=== PATIENT | male | born 1955 | race Caucasian/White ===

== ENCOUNTER 2018-12-08 12:40 | Inpatient (IN) | payer MEDICARE, OTHER ==
[2018-12-08] VITALS (12 sets, daily range): BP systolic 119–170; BP diastolic 57–86
[2018-12-08] MEDS ORDERED: GLUCOSE 4 GM CHEW TABLET PO PRN (17:30)
[2018-12-08] MEDS ORDERED: DEXTROSE 50% 50 ML SYRINGE IV PRN (17:30)
[2018-12-08] MEDS ORDERED: GLUCAGON FOR INJ 1 MG VIAL (J1610) SC PRN (17:30)
[2018-12-08] MEDS ORDERED: HumaLOG INSULIN (NovoLOG) PER UNIT SC SCH ×2 (17:30→21:00)
[2018-12-08] MEDS ORDERED: IPRATROPIUM 0.5MG/ALBUTEROL 2.5MG INH SOL UD 3ML (DUONEB)(J7620) NEB PRN (17:30)
[2018-12-08] MEDS ORDERED: POTA10TA17 PO (17:52)
[2018-12-08] MEDS ORDERED: SPIR-10 PO (17:52)
[2018-12-08] MEDS ORDERED: MULTCAP PO (17:52)
[2018-12-08] MEDS ORDERED: CALC500T68 PO (17:52)
[2018-12-08] MEDS ORDERED: ATOR80TA59 PO (17:52)
[2018-12-08] MEDS ORDERED: GLIP5TAB8 PO (17:52)
[2018-12-08] MEDS ORDERED: FURO40TA2 PO (17:52)
[2018-12-08] MEDS ORDERED: METF500T4 PO (17:52)
[2018-12-08] MEDS ORDERED: VENTAER INH (17:52)
[2018-12-08] MEDS ORDERED: XARE20TA PO (17:52)
[2018-12-08] MEDS ORDERED: NESI25TA PO (17:52)
[2018-12-08] MEDS ORDERED: METO50TA7 PO (17:52)
[2018-12-08] MEDS ORDERED: LISI40TA PO (17:52)
[2018-12-08] MEDS ORDERED: MAGN250T6 PO (17:52)
[2018-12-08] MEDS ORDERED: DILT180C43 PO (17:52)
[2018-12-08] MEDS ORDERED: SYMB16INH INH (17:52)
[2018-12-08] MEDS ORDERED: FISH1000 PO (17:52)
[2018-12-08] MEDS ORDERED: ZINC1TAB2 PO (17:52)
[2018-12-08] MEDS ORDERED: TIOT18INH INH (17:52)
[2018-12-08] MEDS ORDERED: PANT40TA3 PO (17:52)
[2018-12-08] MEDS ORDERED: DRIS50003 PO (17:53)
[2018-12-08] MEDS ORDERED: NITROGLYCERIN/D5W 100MCG/ML 25 MG in APPROPRIATE DILUENT 1 EA IV SCH (18:15)
[2018-12-08] MEDS: FUROSEMIDE 40 MG/4 ML VIAL (J1940) IV SCH (18:27)
[2018-12-08 18:39] LABS: ABG BASE EXCESS 3.3 (-2.0-2.0); ABG HCO3 28.2 MEQ/L (22.0-26.0); ABG O2 SATURATION 95.7 % (95.0-99.0); ABG PARTIAL PRESSURE CO2 43.7 mmHg (35.0-45.0); ABG PARTIAL PRESSURE O2 82.8 mmHg (75.0-100.0); ABG STANDARD HCO3 27.4 MEQ/L (22.0-26.0); ABG TOTAL CO2 29.5 MEQ/L (23.0-31.0); ABG pH (ARTERIAL) 7.427 UNITS (7.350-7.450)
[2018-12-08 18:51] LABS: HEMOGLOBIN 14.1 g/dl (13.5-17.5); MEAN CORPUSCULAR HEMOGLOBIN 29.9 pg (27.0-33.0); MEAN CORPUSCULAR HGB CONC 32.8 g/dl (32.0-36.5); MEAN CORPUSCULAR VOLUME 91.1 fl (80.0-96.0); PLATELET COUNT, AUTOMATED 220 10^3/uL (150-450); RED BLOOD COUNT 4.72 10^6/uL (4.30-6.10); WHITE BLOOD COUNT 11.8 10^3/uL (4.0-10.0)
--- NOTE | 2018-12-08 18:52 | ECGEPIP ---
Stationary ECG Study [facility] Test Date: 2018-12-08 Pat Name: MELVIN OLIVEROS Department: Room: [place] [address] Gender: M Research Geneticist: KAREEM : 1955 Requested By: CHRISTINA LOVING Order Number: [id number] Reading MD: Adwoa Gaspar Measurements Intervals Reserve Rate: 100 P: 50 MN: 166 QRS: 62 QRSD: 113 T: 38 QT: 391 QTc: 505 Interpretive Statements SINUS TACHYCARDIA MODERATE INTRAVENTRICULAR CONDUCTION DELAY NO PRIOR Electronically Signed On 12-08-2018 18:52:22 EDT by Adwoa Gaspar
[2018-12-08 19:02] LABS: INR 2.04; PROTHROMBIN TIME 23.4 SECONDS (12.1-14.4)
[2018-12-08 19:07] LABS: ALBUMIN 3.3 GM/DL (3.2-5.2); ALT/SGPT 36 U/L (12-78); BILIRUBIN,TOTAL 0.7 MG/DL (0.2-1.0); BLOOD UREA NITROGEN 14 MG/DL (7-18); CALCIUM LEVEL 8.5 MG/DL (8.8-10.2); CARBON DIOXIDE LEVEL 28 MEQ/L (21-32); CHLORIDE LEVEL 101 MEQ/L (98-107); CREATININE FOR GFR 0.82 MG/DL (0.70-1.30); GLOMERULAR FILTRATION RATE > 60.0 (>49); GLUCOSE, FASTING 269 MG/DL (70-100); MAGNESIUM LEVEL 1.7 MG/DL (1.8-2.4); POTASSIUM SERUM 3.6 MEQ/L (3.5-5.1); SODIUM LEVEL 136 MEQ/L (136-145); TOTAL PROTEIN 7.5 GM/DL (6.4-8.2)
--- NOTE | 2018-12-08 19:14 | HPEPDOC ---
General Date of Admission December 08, 2018 at 16:20 Chief Complaint The patient is a 63-year-old male admitted with a reason for visit of Pneumonia,Copd,Chf. Source: Patient, EMS notes reviewed, Other (other hospital records) Exam Limitations: No limitations Severity: Severe Associated Symptoms: Cough, Chills, Shortness of breath History of Present Illness 63 aliya old male with PMH of Diastolic CHF, copd with chronic respiratory failure with hypoxia, Morbid obesity , ROBBIN on CPAP, diabetes, hypertension, hyperlipidemia, Paroxysmal atrial fibrillation, hypomagnesemia, GERD, h/o colon cancer s/p partial colectomy in 2012 presented initially to the [facility] ED on 12/08/18 at the insistence of his friend for Shortness of breath worse for 1 day orthopniec over night normally he uses 2 pillow but could not lay down last night. Chika had associated cough with greenish sputum production over the past 4 days. He has been feeling generally unwell with malaise and subjective chills for the ast 5 days. He also had a n associated sore throat. He thought he had a cold. He was also started on spironolactone 1 week and though that was making him sick but ever after stopping the medication he did not feel any better. In the ED of the other hospital CXR showed RLL infiltrates and pulmonary vascular congestion. He was diagnosed with Pneumonia and CHF. He was given 80 mg of Lasix with 3000 ml Urine output which really improved his breathing. His blood pressure was uncontrolled so he was also started on nitro gtt. He was also give ceftriaxone and azithromycin. He was transferred here for further care. Home Medications Scheduled Alogliptin Benzoate (Nesina) 25 Mg Tablet, 25 MG PO DAILY, (Reported) Atorvastatin Calcium (Atorvastatin Calcium) 80 Mg Tablet, 80 MG PO DAILY, (Reported) Budesonide/Formoterol (Symbicort 160-4.5 Mcg Inhaler) 6 Gm Hfa.aer.ad, 2 PUFF INH BID, (Reported) Calcium Carbonate (Calcium) 500 Mg Tab.chew, 500 MG PO DAILY, (Reported) Digoxin (Digoxin) 250 Mcg Tablet, 250 MCG PO DAILY Diltiazem Hcl (Cardizem Cd) 120 Mg Cap.er.24h, 240 MG PO BID Ergocalciferol (Vitamin D2) (Drisdol) 50,000 Unit Capsule, 50,000 UNIT PO Q2WK, (Reported) SATURDAYS Glipizide (Glipizide) 5 Mg Tablet, 5 MG PO BID, (Reported) Magnesium Oxide (Magnesium Oxide) 250 Mg Tablet, 250 MG PO DAILY, (Reported) Metformin HCl (Metformin HCl ER) 500 Mg Tab.er.24h, 1,000 MG PO DAILY, (Reported) Methimazole (Methimazole) 5 Mg Tablet, 15 MG PO DAILY Multivitamin (Multivitamins) 1 Each Capsule, 1 CAP PO BID, (Reported) Nebivolol HCl (Bystolic) 5 Mg Tablet, 20 MG PO BID [place]-3 Fatty Acids/Fish Oil (Fish Oil 1,000 mg Capsule) 1 Each Capsule, 1,000 MG PO DAILY, (Reported) Pantoprazole Sodium (Pantoprazole Sodium) 40 Mg Tablet.dr, 40 MG PO DAILY, (Reported) Potassium Chloride (Potassium Chloride) 10 Meq Tab.er.prt, 20 MEQ PO DAILY, (Reported) Potassium Chloride (Klor-Con M10) 10 Meq Tab.er.prt, 40 MEQ PO DAILY Rivaroxaban (Xarelto) 20 Mg Tablet, 20 MG PO DAILY, (Reported) Spironolactone (Spironolactone) 25 Mg Tablet, 25 MG PO DAILY, (Reported) Tiotropium [place] Monohydrate (Spiriva) 18 Mcg Cap.w.dev, 1 CAP INH DAILY, (Reported) Torsemide (Torsemide) 20 Mg Tablet, 20 MG PO BID Zinc (Zinc) 50 Mg Tablet, 50 MG PO DAILY, (Reported) Scheduled PRN Albuterol Sulfate (Ventolin Hfa) 18 Gm Hfa.aer.ad, 2 PUFF INH Q4H PRN for SHORTNESS OF BREATH, (Reported) Allergies Coded Allergies: POLLEN (Unverified Allergy, Unknown, RUNNY NOSE, 12/08/18) levofloxacin (Unverified Allergy, Unknown, UNKNOWN, 12/08/18) Past Medical History Medical History Diastolic CHF, copd with chronic respiratory failure with hypoxia, Morbid obesity , ROBBIN on CPAP, diabetes, hypertension, hyperlipidemia, Paroxysmal atrial fibrillation, hypomagnesemia, GERD, h/o colon cancer s/p partial colectomy in Surgical History h/o colon cancer s/p partial colectomy in 2012 Family History Family history reviewed with pateint and is noncontributary Social History * Smoker: Denies Alcohol: occationally (3 times a week about 3 beers at a time) Drugs: denies A-FIB/CHADSVASC A-FIB History Current/History of A-Fib/PAF?: Yes Current Oral Anticoagulant The: Yes Review of Systems Constitutional: Reports: Chills, Weakness, Fatigue Eyes: Denies: Pain, Vision change ENT: Denies: Head Aches, Ear Pain, Dysphagia Skin: Denies: Rash, Lesions, Breakdown Pulmonary: Reports: Dyspnea, Cough Cardiovascular: Reports: Orthopnea, Edema Gastrointestinal: Denies: Nausea, Vomiting, Abdominal Pain, Diarrhea Genitourinary: Denies: Dysuria, Frequency, Incontinence, Retention Hematologic: Denies: Bruising, Bleeding Excessively Musculoskeletal: Denies: Neck Pain, Back Pain, Joint Pain, Muscle Pain, Spasms Neurological: Denies: Weakness, Numbness, Change in speech, Confusion Psych: Reports: Mood Normal; Denies: Depression, Memory Issues Physical Examination General Exam: Positive: Alert, Cooperative, Moderate Distress Eye Exam: Positive: PERRLA, Conjunctiva & lids normal, EOMI; Negative: Sclera icteric ENT Exam: Positive: Atraumatic, Mucous membr. moist/pink, Pharynx Normal Neck Exam: Positive: Supple, JVD Chest Exam: Positive: Rales, Wheezing, Diminished Heart Exam: Positive: Rate Normal, Normal S1, Normal S2; Negative: Regular Rhythm, Gallops, Murmurs, Rubs, Other Telemetry: Positive: No significant arrhythmia Abdomen Exam: Positive: Normal bowel sounds, Soft Extremity Exam: Positive: Edema; Negative: Clubbing, Cyanosis Skin Exam: Positive: Nl turgor and temperature; Negative: Breakdown, Lesion Neuro Exam: Positive: Normal Gait, Normal Speech, Cranial Nerves 3-12 NL, Reflexes 2+ Psych Exam: Positive: Mental status NL, Mood NL, Oriented x 3 Vital Signs Vital Signs Date Time Temp Pulse Resp B/P (MAP) Pulse Ox O2 Delivery O2 Flow Rate FiO2 12/08/18 16:47 99.4 106 22 170/86 (114) 96 12/08/18 16:45 2.0 Assessment/Plan 63 aliya old male with PMH of Diastolic CHF, copd with chronic respiratory failure with hypoxia, Morbid obesity , ROBBIN on CPAP, diabetes, hypertension, hyperlipidemia, Paroxysmal atrial fibrillation, hypomagnesemia, GERD, h/o colon cancer s/p partial colectomy in 2012 presented initially to the [facility] ED on 12/08/18 at the insistence of his friend for Shortness of breath worse for 1 day orthopniec over night normally he uses 2 pillow but could not lay down last night. Chika had associated cough with greenish sputum production over the past 4 days. He has been feeling generally unwell with malaise and subjective chills for the ast 5 days. He also had a n associated sore throat. He thought he had a cold. He was also started on spironolactone 1 week and though that was making him sick but ever after stopping the medication he did not feel any better. In the ED of the other hospital CXR showed RLL infiltrates and pulmonary vascular congestion. He was diagnosed with Pneumonia and CHF. He was given 80 mg of Lasix with 3000 ml Urine output which really improved his breathing. His blood pressure was uncontrolled so he was also started on nitro gtt. He was also give ceftriaxone and azithromycin. He was transferred here for further care. Diastolic CHF exacerbation will get an echo. start on lasix iv also on nitroglycerine gtt. already had 3 L of diuresis in the other hospital fluid restriction 1.8 liters. Patient admits to drinking a lot of fluids at home. Possible RLL pneumonia will give ceftriaxone and azithromycin COPD exacerbation due to fluid overload and pneumonia continue nebs and iv steroids. Lactacidosis In my interpretation the pateint's lactacidosis is due to increased work of breathing and albuterol treatments rather than infection Hypertension will start diltiazem, betablocker slowing wean of nitroglycerine gtt Diabetes glipizide and lispro Paroxysmal A fib now in sinus rhythm will continue betablocker and diltiazeem will give xarelto DVT prophylaxis ordered. Plan / VTE VTE Prophylaxis Ordered?: Yes CHRISTINA LOVING MD December 08, 2018 18:00
[2018-12-08] MEDS: ALBUTEROL SULFATE 2.5 MG/0.5 ML INH NEB SOLN NEB SCH (19:42)
[2018-12-08] MEDS: BUDESONIDE 0.5 MG/2 ML INHALATION SUSPENSION INH SCH (19:42)
[2018-12-08] MEDS ORDERED: LEVEMIR (INSULIN DETEMIR) 1 UNITS/0.01ML SC SCH (21:00)
[2018-12-08] MEDS: METOPROLOL TART 25 MG TABLET PO SCH (21:08)
[2018-12-08] MEDS: MAGNESIUM OXIDE 400 MG TAB (MAG-OX) PO SCH (21:08)
[2018-12-08] MEDS: methylPREDNISolone INJ 40 MG/1 ML VIAL (J2920) IV SCH (21:09)
[2018-12-08] MEDS: glipiZIDE (GLUCOTROL) 5 MG TAB PO SCH (21:22)
[2018-12-08] MEDS: HumaLOG INSULIN (NovoLOG) PER UNIT SC SCH (21:24)
[2018-12-09] VITALS (57 sets, daily range): BP systolic 99–197; BP diastolic 55–144
[2018-12-09] MEDS: ALBUTEROL SULFATE 2.5 MG/0.5 ML INH NEB SOLN NEB SCH ×4 (01:09→20:14)
--- NOTE | 2018-12-09 02:35 | REP ---
Clinical: Shortness of breath. Comparison: None . Findings: The mediastinum and cardiac silhouette are stable and within normal limits for portable technique. Subtle right basilar opacity cannot be excluded and should be correlated clinically. Impression: Subtle right basilar opacity should be correlated with physical examination and auscultation. No prior examination for comparison. Consider chest CT for further investigation if necessary. Electronically Signed by Jameson Stephenson MD 12/09/2018 02:26 A
[2018-12-09] MEDS: methylPREDNISolone INJ 40 MG/1 ML VIAL (J2920) IV SCH ×3 (04:28→19:55)
[2018-12-09] MEDS: FUROSEMIDE 40 MG/4 ML VIAL (J1940) IV SCH ×3 (04:28→19:55)
[2018-12-09 05:45] LABS: BASO % 0.2 % (0.0-1.0); HEMATOCRIT 42.2 % (42.0-52.0); HEMOGLOBIN 14.1 g/dl (13.5-17.5); LYMPH # 0.6 10^3/uL (1.5-4.5); LYMPH % 4.8 % (24.0-44.0); MEAN CORPUSCULAR HEMOGLOBIN 30.1 pg (27.0-33.0); MEAN CORPUSCULAR HGB CONC 33.4 g/dl (32.0-36.5); MEAN CORPUSCULAR VOLUME 90.2 fl (80.0-96.0); MONO # 0.8 10^3/uL (0.0-0.8); MONO % 6.2 % (0.0-5.0); NEUTROPHILS # 11.5 10^3/uL (1.8-7.7); PLATELET COUNT, AUTOMATED 244 10^3/uL (150-450); RED BLOOD COUNT 4.68 10^6/uL (4.30-6.10); WHITE BLOOD COUNT 13.1 10^3/uL (4.0-10.0)
[2018-12-09 06:12] LABS: BLOOD UREA NITROGEN 18 MG/DL (7-18); CALCIUM LEVEL 8.6 MG/DL (8.8-10.2); CARBON DIOXIDE LEVEL 32 MEQ/L (21-32); CHLORIDE LEVEL 101 MEQ/L (98-107); CREATININE FOR GFR 0.72 MG/DL (0.70-1.30); GLOMERULAR FILTRATION RATE > 60.0 (>49); GLUCOSE, FASTING 229 MG/DL (70-100); MAGNESIUM LEVEL 1.9 MG/DL (1.8-2.4); POTASSIUM SERUM 3.6 MEQ/L (3.5-5.1); SODIUM LEVEL 141 MEQ/L (136-145)
[2018-12-09] MEDS: BUDESONIDE 0.5 MG/2 ML INHALATION SUSPENSION INH SCH ×2 (07:24→20:14)
[2018-12-09] MEDS: TIOTROPIUM INHALER/CAPSULE (SPIRIVA) INH SCH (07:24)
[2018-12-09] MEDS: METOPROLOL TART 25 MG TABLET PO SCH (08:08)
[2018-12-09] MEDS: CALCIUM CARBONATE 500 MG CHEW U/D PO SCH (08:08)
[2018-12-09] MEDS: MAGNESIUM OXIDE 400 MG TAB (MAG-OX) PO SCH ×2 (08:09→20:37)
[2018-12-09] MEDS: HumaLOG INSULIN (NovoLOG) PER UNIT SC SCH ×4 (08:09→20:37)
[2018-12-09] MEDS: AZITHROMYCIN 250 MG TAB PO SCH (08:09)
[2018-12-09] MEDS: PANTOPRAZOLE 40MG TAB (PROTONIX) PO SCH (08:09)
[2018-12-09] MEDS: POTASSIUM CHLORIDE 10 MEQ SR TABLET PO SCH (08:09)
[2018-12-09] MEDS: glipiZIDE (GLUCOTROL) 5 MG TAB PO SCH (08:09)
[2018-12-09] MEDS: cefTRIAXone SOD 1 GM in D5W MINI-BAG PLUS 50 ML IV SCH (08:10)
[2018-12-09] MEDS: METOPROLOL 5 MG/5 ML VIAL IV SCH ×3 (08:47→09:00)
[2018-12-09] MEDS ORDERED: METOPROLOL 5 MG/5 ML VIAL As Ordered ONE (08:48)
[2018-12-09] MEDS ORDERED: LEVEMIR (INSULIN DETEMIR) 1 UNITS/0.01ML SC SCH (09:00)
[2018-12-09] MEDS: RIVAROXABAN 20 MG TAB (XARELTO) PO SCH (10:05)
[2018-12-09] MEDS: diltiaZEM 125 MG in NS 100 ML IV SCH ×2 (10:05→16:58)
--- NOTE | 2018-12-09 12:21 | IPNPDOC ---
Subjective Date Seen The patient was seen on 12/09/18. Subjective Chief Complaint/HPI pateint went into Afib with Rvr this am with pulse of 160 to 190 with increased SOB and increased coughing this happened about 1 hour after his nebs . given metoprolol 5 mg iv x 3 without improvement so started on diltiazem gtt. Got records from behavioral therapy coordinator office to look into last echo report and the EF. EF was 55 %. with diltiazem pulse rate did come done to 140s to 160s. Consulted cardiology. Denied any chest pain, felt palpitation. No fever or chills. His respiratory panel came back positive for parainfluenza virus. Objective Physical Examination General Exam: Positive: Alert, Cooperative, Moderate Distress Eye Exam: Positive: PERRLA, Conjunctiva & lids normal, EOMI; Negative: Sclera icteric ENT Exam: Positive: Atraumatic, Mucous membr. moist/pink, Pharynx Normal Neck Exam: Positive: Supple, JVD Chest Exam: Positive: Rales, Diminished Heart Exam: Positive: Rate Normal, Normal S1, Normal S2; Negative: Regular Rhythm, Gallops, Murmurs, Rubs, Other Telemetry: Positive: No significant arrhythmia Abdomen Exam: Positive: Normal bowel sounds, Soft Extremity Exam: Positive: Edema; Negative: Clubbing, Cyanosis Skin Exam: Positive: Nl turgor and temperature; Negative: Breakdown, Lesion Neuro Exam: Positive: Normal Gait, Normal Speech, Cranial Nerves 3-12 NL, Reflexes 2+ Psych Exam: Positive: Mental status NL, Mood NL, Oriented x 3 Assessment /Plan Assessment 63 aliya old male with PMH of Diastolic CHF, copd with chronic respiratory failure with hypoxia, Morbid obesity , ROBBIN on CPAP, diabetes, hypertension, hyperlipidemia, Paroxysmal atrial fibrillation, hypomagnesemia, GERD, h/o colon cancer s/p partial colectomy in 2013 presented initially to the [facility] ED on 12/08/18 at the insistence of his friend for Shortness of breath worse for 1 day orthopniec over night normally he uses 2 pillow but could not lay down last night. Halso had associated cough with greenish sputum production over the past 4 days. He has been feeling generally unwell with malaise and subjective chills for the ast 5 days. He also had a n associated sore throat. He thought he had a cold. He was also started on spironolactone 1 week and though that was making him sick but ever after stopping the medication he did not feel any better. In the ED of the other hospital CXR showed RLL infiltrates and pulmonary vascular congestion. He was diagnosed with Pneumonia and CHF. He was given 80 mg of Lasix with 3000 ml Urine output which really improved his breathing. His blood pressure was uncontrolled so he was also started on nitro gtt. He was also give ceftriaxone and azithromycin. He was transferred here for further care. Parainfluenza viral respiratory infection with post infectious pneumonia bacterial vs viral continue symptomatic treatment. Diastolic CHF exacerbation Echo from behavioral therapy coordinator office from september 2018 shows ED of 55% paeint was in Afib then also with rate of 122. will get an echo. start on lasix iv also on nitroglycerine gtt. already had 3 L of diuresis in the other hospital fluid restriction 1.8 liters. Patient admits to drinking a lot of fluids at home. Possible RLL pneumonia viral vs bacterial pneumonia will get procalcitonin. ceftriaxone and azithromycin COPD exacerbation Parainfluenza infection due to fluid overload and pneumonia continue nebs and iv steroids. Lactacidosis no improvement yet will continue tt for the above. Hypertension with hypertensive heart disease diltiazem, betablocker nitroglycerine gtt weaned off Diabetes glipizide and lispro Paroxysmal A fib Today went into Afib with rvr in the morning. given metoprolol x3 then started on diltiazen infusion consulted cardiology will continue betablocker continue xarelto DVT prophylaxis ordered. Plan/VTE VTE Prophylaxis Ordered?: Yes VS, I&O, 24H, Fishbone Vital Signs/I&O Vital Signs Date Time Temp Pulse Resp B/P (MAP) Pulse Ox O2 Delivery O2 Flow Rate FiO2 12/09/18 10:05 169 12/09/18 09:00 127/90 12/09/18 06:45 93 12/09/18 06:34 2.0 12/09/18 04:00 98.0 26 I&O- Last 24 Hours up to 6 AM 12/09/18 06:00 Intake Total 608.8 ml Output Total 2325 ml Balance -1716.2 ml Laboratory Data 24H LABS Laboratory Tests 2 12/08/18 18:21: Bedside Glucose (Misc Panel) 281H 12/08/18 18:29: Nucleated Red Blood Cells % (auto) 0.0, Prothrombin Time 23.4H, Prothromb Time International Ratio 2.04, Blood Gas Bicarbonate Standard 27.4H, Arterial Blood pH 7.427, Arterial Blood Partial Pressure CO2 43.7, Arterial Blood Partial Pressure O2 82.8, Arterial Blood Total CO2 29.5, Arterial Blood HCO3 28.2H, Arterial Blood Base Excess 3.3H, Arterial Blood Oxygen Saturation 95.7, Anion Gap 7L, Glomerular Filtration Rate > 60.0, Lactic Acid Level 2.3*H, Blood Urea Nitrogen 14, Creatinine 0.82, Sodium Level 136, Potassium Level 3.6, Chloride Level 101, Carbon Dioxide Level 28, Calcium Level 8.5L, Aspartate Amino Transf (AST/SGOT) 30, Alanine Aminotransferase (ALT/SGPT) 36, Alkaline Phosphatase 136H, Total Bilirubin 0.7, Total Protein 7.5, Albumin 3.3, Magnesium Level 1.7L, Albumin/Globulin Ratio 0.79L 12/08/18 21:03: Bedside Glucose (Misc Panel) 357H 12/08/18 23:09: Lactic Acid Followup at 4 Hours 3.0*H 12/09/18 05:33: Immature Granulocyte % (Auto) 0.8, White Blood Count 13.1H, Red Blood Count 4.68, Hemoglobin 14.1, Hematocrit 42.2, Mean Corpuscular Volume 90.2, Mean Corpuscular Hemoglobin 30.1, Mean Corpuscular Hemoglobin Concent 33.4, Red Cell Distribution Width 14.6H, Platelet Count 244, Neutrophils (%) (Auto) 88.0H, Lymphocytes (%) (Auto) 4.8L, Monocytes (%) (Auto) 6.2H, Eosinophils (%) (Auto) 0.0, Basophils (%) (Auto) 0.2, Neutrophils # (Auto) 11.5H, Lymphocytes # (Auto) 0.6L, Monocytes # (Auto) 0.8, Eosinophils # (Auto) 0.0, Basophils # (Auto) 0.0, Nucleated Red Blood Cells % (auto) 0.0, Anion Gap 8, Glomerular Filtration Rate > 60.0, Blood Urea Nitrogen 18, Creatinine 0.72, Sodium Level 141, Potassium Level 3.6, Chloride Level 101, Carbon Dioxide Level 32, Calcium Level 8.6L, Magnesium Level 1.9 12/09/18 11:55: Bedside Glucose (Misc Panel) 270H CBC/BMP Laboratory Tests 12/08/18 18:29 Red Blood Count 4.72, Mean Corpuscular Volume 91.1, Mean Corpuscular Hemoglobin 29.9, Mean Corpuscular Hemoglobin Concent 32.8, Red Cell Distribution Width 14.5, Calcium Level 8.5 L, Aspartate Amino Transf (AST/SGOT) 30, Alanine Aminotransferase (ALT/SGPT) 36, Alkaline Phosphatase 136 H, Total Bilirubin 0.7, Total Protein 7.5, Albumin 3.3 12/09/18 05:33 Red Blood Count 4.68, Mean Corpuscular Volume 90.2, Mean Corpuscular Hemoglobin 30.1, Mean Corpuscular Hemoglobin Concent 33.4, Red Cell Distribution Width 14.6 H, Calcium Level 8.6 L, Neutrophils (%) (Auto) 88.0 H, Lymphocytes (%) (Auto) 4.8 L, Monocytes (%) (Auto) 6.2 H, Eosinophils (%) (Auto) 0.0, Basophils (%) (Auto) 0.2, Neutrophils # (Auto) 11.5 H, Lymphocytes # (Auto) 0.6 L, Monocytes # (Auto) 0.8, Eosinophils # (Auto) 0.0, Basophils # (Auto) 0.0 Microbiology Microbiology 12/08/18 Respiratory Virus Panel (PCR) ([facility]) - Final, Complete Parainfluenza 3 (Piv3) CHRISTINA LOVING MD December 09, 2018 12:21
[2018-12-09] MEDS: AMIODARONE 200 MG TAB (PACERONE) PO SCH ×3 (14:12→20:38)
[2018-12-09] MEDS ORDERED: NEBIVOLOL 5 MG TAB (BYSTOLIC) PO SCH ×2 (15:00→21:00)
[2018-12-09] MEDS ORDERED: PILL CRUSHER/CUTTER 1 EACH XX PRN (16:45)
[2018-12-09] MEDS ORDERED: DIGOXIN INJ 0.5 MG/2 ML AMP (J1160) IV ONE ×3 (17:00→23:00)
[2018-12-09] MEDS ORDERED: RIVAROXABAN 20 MG TAB (XARELTO) PO SCH (18:00)
[2018-12-09] MEDS: SITagliptin 50 MG TAB (JANUVIA) PO SCH (18:27)
--- NOTE | 2018-12-09 19:09 | CR ---
DATE OF CONSULTATION: 12/09/2018 REFERRING PHYSICIAN: Dr. Vianey Landry REASON FOR CONSULTATION: Paroxysmal atrial fibrillation with rapid ventricular response, acute on chronic diastolic heart failure. HISTORY OF THE PRESENT ILLNESS: Mr. Cisco Guo is a 63-year-old morbidly obese man with known paroxysmal atrial fibrillation, chronic diastolic heart failure, systemic hypertension, chronic obstructive pulmonary disease (COPD) with chronic respiratory failure with hypoxia, obstructive sleep apnea - on continuous positive airway pressure (CPAP), type 2 diabetes, hyperlipidemia, hypomagnesemia, gastroesophageal reflux disease (GERD), history of colon cancer, status post partial colectomy 2012, who recently presented to [facility] Emergency Room (ER) 12/08/2018 because of a one-day history of worsening shortness of breath with orthopnea and dyspnea at rest. He usually has dyspnea with less than ordinary activities of daily living. He had also been producing green sputum in the previous 4 days prior to his presentation. He was feeling generally unwell and subjectively felt chills in the 5 days prior to his presentation. He was discovered to have a right lower lobe infiltrate and pulmonary vascular congestion. He was diagnosed with pneumonia and congestive heart failure. He initially responded well with intravenous (IV) Lasix. His blood pressure was uncontrolled and so he was placed on nitroglycerin IV. He was given antibiotics (ceftriaxone and azithromycin). He was transferred to [facility] for further management. While here in the hospital at [facility], he has been having atrial fibrillation with rapid ventricular response despite metoprolol tartrate by mouth and IV diltiazem. Patient denies any chest pain, pressure, tightness, squeezing, or heaviness with or without exertion. No paroxysmal nocturnal dyspnea (PND). He reports chronic bilateral leg and ankle edema which he could not appreciate as being any different prior to admission, although it is hard for him to see his legs well because of his obesity. He is completely unaware of any palpitations even when he is in atrial fibrillation. No presyncope or syncope. No embolic events. No intermittent claudication. OTHER PAST MEDICAL AND SURGICAL HISTORY: Paroxysmal atrial fibrillation, chronic diastolic heart failure, COPD with chronic respiratory failure with hypoxemia, morbid obesity, obstructive sleep apnea - on continuous positive airway pressure (CPAP), type 2 diabetes, systemic hypertension, hyperlipidemia, hypomagnesemia, gastroesophageal reflux disease (GERD), history of colon cancer - status post partial colectomy 2012. ADVERSE DRUG REACTION: LEVOFLOXACIN (unknown reaction). MEDICATIONS PRIOR TO ADMISSION: - albuterol two puffs every 4 hours as needed - Nesina 25 mg by mouth daily - atorvastatin 80 mg daily - Symbicort two puffs twice a day - calcium carbonate 500 mg daily - diltiazem ER 180 mg daily - vitamin D2 50,000 units by mouth every 2 weeks on Saturdays - furosemide 40 mg by mouth twice a day - glipizide 5 mg twice a day - lisinopril 40 mg by mouth daily - magnesium oxide 250 mg daily - metformin ER 1000 mg by mouth daily - metoprolol tartrate 75 mg twice a day - multivitamin one twice a day - [place]-3 fish oil 1000 mg daily - pantoprazole 40 mg by mouth daily - potassium chloride 20 mEq daily - Xarelto 20 mg daily - Spiriva one inhalation daily - zinc 50 mg daily PATIENT'S CURRENT MEDICATIONS IN HOSPITAL ARE FOLLOWS: - albuterol nebulizers 2.5 mg every 6 hours - DuoNebs every 2 hours as needed for shortness of breath or wheezing - atorvastatin 80 mg nightly - Zithromax 500 mg by mouth daily - Pulmicort 0.5 mg nebulizer twice a day - TUMS 500 mg daily - ceftriaxone 1 gram IV daily - diltiazem IV 15 mg per hour - furosemide 40 mg IV every 8 hours - glipizide 5 mg twice a day - Glucagon per protocol - glucose per protocol - dextrose 50% IV per protocol - Levemir insulin 20 units subcu twice a day - Humalog insulin before meals and nightly subcu per protocol - magnesium oxide 400 mg twice a day - Solu-Medrol 40 mg IV every 8 hours - nitroglycerin IV - Protonix 40 mg by mouth daily - potassium chloride extended release 20 mEq daily - Xarelto 20 mg by mouth daily - Spiriva one inhalation daily FAMILY HISTORY: Noncontributory. SOCIAL HISTORY: Nonsmoker. He consumes an average of three beers three times a week. No illicit drugs. REVIEW OF SYSTEMS: Chills, weakness and fatigue prior to admission. Normal mood and affect. No anxiety or depression. PHYSICAL EXAMINATION: Temperature 97.2, pulse 149, respiratory rate 26, blood pressure 136/94, oxygen saturation 100% on two liters per minute by nasal cannula. Weight 128.8 kg. Height not listed. Patient appears morbidly obese. . Not in any respiratory or psychologic distress. Teeth are in poor condition with only a few remaining teeth. No conjunctival pallor, scleral icterus or xanthomas. Oral mucosa was moist and without pallor or cyanosis. Jugular venous pulsations were at 15 cm with the patient sitting upright at 90 degrees. Trachea midline. No palpable thyroid. No clubbing, nail bed cyanosis, or splinter hemorrhages. Stasis dermatitis in his legs. No skin pallor or icterus. Oriented to person, place and time. Mood and affect normal. Curvature of the spine normal. Gait walking around his bed was normal. Gross motor strength and tone normal. No abnormal muscle atrophy, fasciculations, or tremors. Respiratory expansion effort was fair. No crackles or wheezes. No palpable apex beat. No left parasternal lifts, heaves, thrills, or palpable heart sounds. First and second heart sounds are variable in intensity. No S3 or murmurs appreciated. No pericardial friction rubs. Carotids are normal in volume and contour and without bruits. No palpable abdominal aorta but difficult to palpate due to abdominal obesity. No abdominal bruits. Femoral pulses difficult to palpate due to severe obesity. Pedal pulses normal. 2 mm of pitting edema was present at mid and distal tibial level bilaterally. No varicose veins. Abdomen was obese, soft, nontender with normal bowel sounds. No hepatosplenomegaly or other organomegaly. Liver span difficult to assess due to abdominal obesity. Stool for occult blood not presently indicated. INVESTIGATIONS: Electrocardiogram 12/08/2018 at 0815 hours shows sinus tachycardia, 100 beats per minute, moderate nonspecific intraventricular conduction delay. I have independently visualized the patient's portable chest x-ray acquired 12/08/2018 at 5:16 p.m. It shows appearance of cardiomegaly despite the portable technique and suboptimal inspiration. Right lower lobe is filled in by raised right hemidiaphragm. Pulmonary vascular redistribution is present. Enlarged pulmonary arteries. No interstitial or alveolar edema. Pleural angles remain sharp. LABORATORY: Laboratory work 12/09/2018 was reviewed: WBC 13.1, hemoglobin 14.1, hematocrit 42.2, platelets 244. Sodium 141, potassium 3.6, chloride 101, CO2 32, BUN 18, creatinine 0.72, estimated GFR greater than 60, glucose 229, magnesium 1.9. Laboratory work 12/08/2018 was reviewed: Magnesium 1.7, total protein 7.5, albumin 3.3, lactic acid 2.3 and 3.0. ASSESSMENT AND PLAN: 1. Paroxysmal atrial fibrillation. Patient went into paroxysmal atrial fibrillation with a rapid ventricular response this morning, which has not responded well to IV diltiazem and metoprolol tartrate. I will switch him from metoprolol tartrate to a more beta-selective beta mini; namely I will switch him to Bystolic. Continue IV diltiazem for now at the current dosage. I will place him on amiodarone 400 mg by mouth four times a day and use this temporarily until he converts back to sinus rhythm. My plan is not to use amiodarone correction because he has got COPD with chronic respiratory failure. Continue Xarelto. If additional heart rate is controlled as needed, I may consider using digoxin at least temporarily with some IV dosing. 2. Acute on chronic diastolic heart failure. Patient is currently decompensated. Agree with IV furosemide. IV nitroglycerin is a good idea for now. I would like to add spironolactone and perhaps an angiotensin receptor mini. 3. Systemic hypertension, uncontrolled systemic hypertension. Continue IV furosemide and IV nitroglycerin for now. As noted above, I will switch him from metoprolol tartrate to Bystolic. I will consider adding spironolactone, and I will consider adding an angiotensin receptor mini. 4. Hyperlipidemia. Recommend a whole food, plant-based diet. Agree with continuing atorvastatin 80 mg nightly. Thank you for asking me to participate in the cardiac care of Mr. Cisco Guo. [facility]
[2018-12-09] MEDS: LEVEMIR (INSULIN DETEMIR) 1 UNITS/0.01ML SC SCH (20:36)
[2018-12-09] MEDS: ATORVASTATIN 20 MG TAB PO SCH (20:38)
--- NOTE | 2018-12-09 20:44 | ECGEPIP ---
Stationary ECG Study [facility] Test Date: 2018-12-09 Pat Name: MELVIN OLIVEROS Department: Room: [place] [address] Gender: M Client Experience Administrator: KAREEM : 1955 Requested By: CHRISTINA LOVING Order Number: [id number] Reading MD: Adwoa Gaspar Measurements Intervals Simpson Rate: 164 P: MA: 0 QRS: 68 QRSD: 109 T: -34 QT: 276 QTc: 456 Interpretive Statements ATRIAL FIBRILLATION WITH RAPID VENTRICULAR RESPONSE NONSPECIFIC ST & T-WAVE ABNORMALITY NON-SPECIFIC IVCD ATRIAL FIBRILLATION IS NEW SINCE 12/08/18 Electronically Signed On 12-09-2018 20:44:06 EDT by Adwoa Gaspar
--- NOTE | 2018-12-09 20:48 | ECHO ---
DATE OF PROCEDURE: 12/09/2018 REFERRING PHYSICIAN: Dr. Landry INDICATION: Congestive heart failure. Height 177 cm, weight 103 kg. DIMENSIONS: IVS: 1.7 LV: 4.1 LVPW: 1.5 LA: 5.1 Aorta: 3.0 IVC: 2.7 Mitral E wave velocity: E prime septal: 8.1 E prime lateral: 11.9 FINDINGS: Study is of very poor technical quality with very limited visualization corresponding to patient's body habitus and underlying chronic obstructive pulmonary disease (COPD). The patient is in atrial fibrillation with rapid ventricular rate, typically around 150 beats per minute Left ventricle is normal size. There is moderate left ventricular hypertrophy. It is impossible to accurately assess left ventricular systolic function due to tachycardia, poor visualization and left ventricle hypertrophy, but based on gross assessment, I estimate mild left ventricular (LV) systolic dysfunction. Right ventricle was poorly visualized. Both atria are severely enlarged. Aortic valve appears sclerotic, but it was poorly seen and I cannot comment on details of its anatomy. There are also degenerative abnormalities of mitral valve with mitral annular calcifications. Tricuspid valve appears normal. Pulmonic valve was not well seen. No pericardial effusion is noted. Inferior vena cava appears dilated. Abdominal aorta appears grossly normal based on limited views. Aortic arch was not visualized. Doppler interrogation reveals no significant aortic stenosis or insufficiency. There is also no mitral valvular disease. Trace tricuspid insufficiency is seen. Calculated pulmonary artery pressure is in 40s, but this should not be considered truly reliable. Evaluation of diastolic function is inconclusive due to atrial fibrillation, but tissue Doppler velocities of mitral annulus are relatively preserved. CONCLUSIONS: 1. Study is of very limited technical quality. 2. Normal LV size with moderate LVH and at least mildly reduced LV systolic function. This is in setting of atrial fibrillation with rapid ventricular response. 3. No hemodynamically significant valvular disease. 4. Likely high central venous pressure and at least moderate pulmonary hypertension. 5. Severe biatrial enlargement. COMMENT: Subacute bacterial endocarditis (SBE) prophylaxis is not recommended.
[2018-12-09] MEDS: NEBIVOLOL 5 MG TAB (BYSTOLIC) PO SCH (21:21)
[2018-12-10] VITALS (26 sets, daily range): BP systolic 125–182; BP diastolic 58–122
[2018-12-10] MEDS: ALBUTEROL SULFATE 2.5 MG/0.5 ML INH NEB SOLN NEB SCH ×4 (00:54→19:43)
[2018-12-10] MEDS: diltiaZEM 125 MG in NS 100 ML IV SCH ×2 (01:05→09:27)
[2018-12-10] MEDS: methylPREDNISolone INJ 40 MG/1 ML VIAL (J2920) IV SCH ×2 (04:07→15:01)
[2018-12-10] MEDS: FUROSEMIDE 40 MG/4 ML VIAL (J1940) IV SCH ×3 (04:08→20:17)
[2018-12-10 05:04] LABS: BASO % 0.2 % (0.0-1.0); HEMATOCRIT 46.6 % (42.0-52.0); HEMOGLOBIN 15.1 g/dl (13.5-17.5); LYMPH # 0.8 10^3/uL (1.5-4.5); LYMPH % 4.1 % (24.0-44.0); MEAN CORPUSCULAR HEMOGLOBIN 29.8 pg (27.0-33.0); MEAN CORPUSCULAR HGB CONC 32.4 g/dl (32.0-36.5); MEAN CORPUSCULAR VOLUME 92.1 fl (80.0-96.0); MONO # 1.2 10^3/uL (0.0-0.8); NEUTROPHILS # 17.7 10^3/uL (1.8-7.7); NEUTROPHILS % 88.8 % (36.0-66.0); PLATELET COUNT, AUTOMATED 291 10^3/uL (150-450); RED BLOOD COUNT 5.06 10^6/uL (4.30-6.10); WHITE BLOOD COUNT 19.9 10^3/uL (4.0-10.0)
[2018-12-10 05:26] LABS: BLOOD UREA NITROGEN 26 MG/DL (7-18); CALCIUM LEVEL 8.5 MG/DL (8.8-10.2); CARBON DIOXIDE LEVEL 33 MEQ/L (21-32); CHLORIDE LEVEL 102 MEQ/L (98-107); CREATININE FOR GFR 0.91 MG/DL (0.70-1.30); GLOMERULAR FILTRATION RATE > 60.0 (>49); GLUCOSE, FASTING 245 MG/DL (70-100); POTASSIUM SERUM 3.4 MEQ/L (3.5-5.1); SODIUM LEVEL 142 MEQ/L (136-145)
[2018-12-10] MEDS ORDERED: POTASSIUM CHLORIDE 10 MEQ SR TABLET PO ONE (06:45)
[2018-12-10 07:05] LABS: MAGNESIUM LEVEL 2.3 MG/DL (1.8-2.4)
[2018-12-10] MEDS: TIOTROPIUM INHALER/CAPSULE (SPIRIVA) INH SCH (07:15)
[2018-12-10] MEDS: BUDESONIDE 0.5 MG/2 ML INHALATION SUSPENSION INH SCH ×2 (07:15→19:43)
[2018-12-10] MEDS: HumaLOG INSULIN (NovoLOG) PER UNIT SC SCH ×4 (07:30→20:41)
[2018-12-10] MEDS: RIVAROXABAN 20 MG TAB (XARELTO) PO SCH (07:50)
[2018-12-10] MEDS: cefTRIAXone SOD 1 GM in D5W MINI-BAG PLUS 50 ML IV SCH (08:19)
[2018-12-10] MEDS: NEBIVOLOL 5 MG TAB (BYSTOLIC) PO SCH (08:20)
[2018-12-10] MEDS: SITagliptin 50 MG TAB (JANUVIA) PO SCH (08:20)
[2018-12-10] MEDS: LEVEMIR (INSULIN DETEMIR) 1 UNITS/0.01ML SC SCH ×2 (08:20→20:16)
[2018-12-10] MEDS: PANTOPRAZOLE 40MG TAB (PROTONIX) PO SCH (08:21)
[2018-12-10] MEDS: CALCIUM CARBONATE 500 MG CHEW U/D PO SCH (08:21)
[2018-12-10] MEDS: MAGNESIUM OXIDE 400 MG TAB (MAG-OX) PO SCH ×2 (08:21→20:18)
[2018-12-10] MEDS: AZITHROMYCIN 250 MG TAB PO SCH (08:21)
[2018-12-10] MEDS: AMIODARONE 200 MG TAB (PACERONE) PO SCH ×4 (08:21→20:18)
[2018-12-10] MEDS: POTASSIUM CHLORIDE 10 MEQ SR TABLET PO SCH (09:00)
--- NOTE | 2018-12-10 10:01 | IPNPDOC ---
Subjective Date Seen The patient was seen on 12/10/18. Subjective Chief Complaint/HPI Feeling better a little less SOB. Close to his usual breathing. Having good urine output and leg swelling is improving. No fever or chills, no chest pain . Does have some cough and intermittent wheezing. Objective Physical Examination General Exam: Positive: Alert, Cooperative, Mild Distress Eye Exam: Positive: PERRLA, Conjunctiva & lids normal, EOMI; Negative: Sclera icteric ENT Exam: Positive: Atraumatic, Mucous membr. moist/pink, Pharynx Normal Neck Exam: Positive: Supple, JVD Chest Exam: Positive: Rales, Wheezing, Diminished Heart Exam: Positive: Tachycardic, Irregular Rhythm, Normal S1, Normal S2; Negative: Regular Rhythm, Gallops, Murmurs, Rubs, Other Telemetry: Positive: Atrial fibrillation Abdomen Exam: Positive: Normal bowel sounds, Soft Extremity Exam: Positive: Edema; Negative: Clubbing, Cyanosis Skin Exam: Positive: Nl turgor and temperature; Negative: Breakdown, Lesion Neuro Exam: Positive: Normal Gait, Normal Speech, Cranial Nerves 3-12 NL, Re flexes 2+ Psych Exam: Positive: Mental status NL, Mood NL, Oriented x 3 Assessment /Plan Assessment 63 aliya old male with PMH of Diastolic CHF, copd with chronic respiratory failure with hypoxia, Morbid obesity , ROBBIN on CPAP, diabetes, hypertension, hyperlipidemia, Paroxysmal atrial fibrillation, hypomagnesemia, GERD, h/o colon cancer s/p partial colectomy in 2012 presented initially to the [facility] ED on 12/08/18 at the insistence of his friend for Shortness of breath worse for 1 day orthopniec over night normally he uses 2 pillow but could not lay down last night. Chika had associated cough with greenish sputum production over the past 4 days. He has been feeling generally unwell with malaise and subjective chills for the ast 5 days. He also had a n associated sore throat. He thought he had a cold. He was also started on spironolactone 1 week and though that was making him sick but ever after stopping the medication he did not feel any better. In the ED of the other hospital CXR showed RLL infiltrates and pulmonary vascular congestion. He was diagnosed with Pneumonia and CHF. He was given 80 mg of Lasix with 3000 ml Urine output which really improved his breathing. His blood pressure was uncontrolled so he was also started on nitro gtt. He was also give ceftriaxone and azithromycin. He was transferred here for further care. Parainfluenza viral respiratory infection with post infectious viral pneumonia procalcitonin is not elevated so he does not have a bacterial pneumonia continue symptomatic treatment will stop antibiotics. Paroxysmal A fib Now in Afib with rvr consulted cardiology will continue nebivolol, amiodarone, diltiazem gtt and digoxin as per cardiology recommendations rate still 115 to 135. continue xarelto Diastolic CHF exacerbation Echo from [facility] office from september 2018 shows ED of 55% patient was in Afib then also with rate of 122. will get an echo. continue IV lasix. fluid restriction 1.8 liters. Patient admits to drinking a lot of fluids at home. Possible RLL pneumonia this is viral pneumonia procalcitonin no elevated will stop ceftriaxone and azithromycin COPD exacerbation Parainfluenza infection, fluid overload and pneumonia continue nebs and iv steroids. will start weaning steroids. Chronic hypoxic respiratory failure patient is at baseline oxygen requirements will continue Morbid Obesity and ROBBIN continue CPAP Lactacidosis due to COPD exacerbation and CHF exacerbation with increased work of breathing. continue treatment for the above Hypertension with hypertensive heart disease diltiazem, betablocker ,lasix. nitroglycerine gtt weaned off Diabetes sugars uncontrolled worsened now due to steroids. on levemir and lispro and januvia. glipizide stopped. Hyperlipidemia continue statin. GERD continue PPI DVT prophylaxis on xarelto Plan/VTE VTE Prophylaxis Ordered?: Yes VS, I&O, 24H, Fishbone Vital Signs/I&O Vital Signs Date Time Temp Pulse Resp B/P (MAP) Pulse Ox O2 Delivery O2 Flow Rate FiO2 12/10/18 09:27 122 135/99 12/10/18 09:00 22 95 2.0 12/10/18 08:00 97.9 I&O- Last 24 Hours up to 6 AM 12/10/18 06:00 Intake Total 1402 ml Output Total 3025 ml Balance -1623 ml Laboratory Data 24H LABS Laboratory Tests 2 12/09/18 11:55: Bedside Glucose (Misc Panel) 270H 12/09/18 17:03: Bedside Glucose (Misc Panel) 259H 12/09/18 20:32: Bedside Glucose (Misc Panel) 183H 12/10/18 04:44: Immature Granulocyte % (Auto) 0.9, White Blood Count 19.9H, Red Blood Count 5.06, Hemoglobin 15.1, Hematocrit 46.6, Mean Corpuscular Volume 92.1, Mean Corpuscular Hemoglobin 29.8, Mean Corpuscular Hemoglobin Concent 32.4, Red Cell Distribution Width 14.8H, Platelet Count 291, Neutrophils (%) (Auto) 88.8H, Lymphocytes (%) (Auto) 4.1L, Monocytes (%) (Auto) 6.0H, Eosinophils (%) (Auto) 0.0, Basophils (%) (Auto) 0.2, Neutrophils # (Auto) 17.7H, Lymphocytes # (Auto) 0.8L, Monocytes # (Auto) 1.2H, Eosinophils # (Auto) 0.0, Basophils # (Auto) 0.0, Nucleated Red Blood Cells % (auto) 0.0, Anion Gap 7L, Glomerular Filtration Rate > 60.0, Blood Urea Nitrogen 26H, Creatinine 0.91, Sodium Level 142, Potassium Level 3.4L, Chloride Level 102, Carbon Dioxide Level 33H, Calcium Level 8.5L, Magnesium Level 2.3 CBC/BMP Laboratory Tests 12/10/18 04:44 Red Blood Count 5.06, Mean Corpuscular Volume 92.1, Mean Corpuscular Hemoglobin 29.8, Mean Corpuscular Hemoglobin Concent 32.4, Red Cell Distribution Width 14.8 H, Neutrophils (%) (Auto) 88.8 H, Lymphocytes (%) (Auto) 4.1 L, Monocytes (%) (Auto) 6.0 H, Eosinophils (%) (Auto) 0.0, Basophils (%) (Auto) 0.2, Neutrophils # (Auto) 17.7 H, Lymphocytes # (Auto) 0.8 L, Monocytes # (Auto) 1.2 H, Eosinophils # (Auto) 0.0, Basophils # (Auto) 0.0, Calcium Level 8.5 L Microbiology Microbiology 12/08/18 Respiratory Virus Panel (PCR) (DA[facility]IDE) - Final, Complete Parainfluenza 3 (Piv3) CHRISTINA LOVING MD December 10, 2018 10:01
[2018-12-10] MEDS ORDERED: NEBIVOLOL 5 MG TAB (BYSTOLIC) PO ONE (14:30)
[2018-12-10] MEDS: SPIRONOLACTONE 25 MG TAB PO SCH (17:56)
[2018-12-10] MEDS: ATORVASTATIN 20 MG TAB PO SCH (20:18)
[2018-12-10] MEDS ORDERED: NEBIVOLOL 5 MG TAB (BYSTOLIC) PO SCH (21:00)
--- NOTE | 2018-12-10 21:38 | IPN ---
DATE: 12/10/2018 TIME OF SERVICE: 4:05 p.m. SUBJECTIVE: Patient reports shortness of breath has improved. He is currently experiencing mild shortness of breath with low levels of activity, ambulating in the room. No orthopnea or paroxysmal nocturnal dyspnea (PND). No chest pain or chest discomfort. He is not aware of any palpitations. Overall, he is reporting that he feels better. PHYSICAL EXAMINATION: Temperature 97.9, pulse 129 (irregularly irregular), respiratory rate 22, blood pressure 132/82, oxygen saturation 95% on room air. Weight today 1237.9 kg. INPUT AND OUTPUT: For the 24 hours of 12/09/2018 show that patient is net negative 945 mL. Jugular venous pulsations were at the angle of the jaw with the patient sitting up at 90 degrees. Breath sound intensity was fair. No crackles or wheezes. First and second heart sounds variable intensity. No S3 or murmurs appreciated. Abdomen was obese, soft, nontender with normal bowel sounds. Mood and affect normal. Speech was normal. 1mm pitting edema was present at mid-tibia level bilaterally. LABORATORY WORK: was reviewed: Sodium 142, potassium 4.3, chloride 102, CO2 33, BUN 26, creatinine 0.96, GFR greater than 60, glucose 245, lactate 3.4 and 3.0, magnesium 2.3. ASSESSMENT AND PLAN: 1. Paroxysmal atrial fibrillation. Patient remains in atrial fibrillation with rapid response. Overall, the heart rate has started to come under better control. He reports on a prior occasion, it took eight days before he spontaneously converted to sinus rhythm. I have switched the patient from diltiazem intravenous (IV) to diltiazem 90 mg by mouth every 8 hours. I have actually titrated up the dose of Bystolic to 50 mg twice a day. Over the course of yesterday, I ordered several doses of digoxin IV. The plan will be to continue to further titrate up the Bystolic and diltiazem until his heart rate comes under good control. Continue amiodarone 200 mg four times a day with the plan to discontinue amiodarone once the patient converts to sinus rhythm. Continue Xarelto 20 mg daily. 2. Diastolic heart failure (acute on chronic). The patient remains decompensated. He is carrying a very good net negative fluid balance. As noted above, he is on medications to help control the rapid ventricular response. Continue with Bystolic, diltiazem, furosemide 40 mg IV every [address] him on spironolactone 25 mg daily. He received a dose of potassium chloride earlier today to correct the hypokalemia. 3. Blood pressure has gradually come under better control. Continue with diltiazem, IV furosemide and nebivolol. Will add spironolactone as well. 4. Hyperlipidemia. Patient is on a dash diet. No prior lipids are available for my review.
[2018-12-10] MEDS ORDERED: DIGOXIN 0.25 MG TAB PO ONE (22:30)
[2018-12-10] MEDS ORDERED: VALSARTAN 80 MG TAB (DIOVAN) PO ONE (22:45)
[2018-12-11] VITALS (13 sets, daily range): BP systolic 117–189; BP diastolic 71–101
[2018-12-11] MEDS: ALBUTEROL SULFATE 2.5 MG/0.5 ML INH NEB SOLN NEB SCH (01:29)
[2018-12-11] MEDS: methylPREDNISolone INJ 40 MG/1 ML VIAL (J2920) IV SCH ×2 (04:27→15:42)
[2018-12-11 05:16] LABS: BASO % 0.1 % (0.0-1.0); HEMATOCRIT 45.9 % (42.0-52.0); LYMPH # 1.1 10^3/uL (1.5-4.5); LYMPH % 6.6 % (24.0-44.0); MEAN CORPUSCULAR HEMOGLOBIN 29.5 pg (27.0-33.0); MEAN CORPUSCULAR HGB CONC 32.7 g/dl (32.0-36.5); MEAN CORPUSCULAR VOLUME 90.4 fl (80.0-96.0); MONO # 1.2 10^3/uL (0.0-0.8); MONO % 7.5 % (0.0-5.0); NEUTROPHILS # 13.7 10^3/uL (1.8-7.7); NEUTROPHILS % 85.1 % (36.0-66.0); PLATELET COUNT, AUTOMATED 266 10^3/uL (150-450); RED BLOOD COUNT 5.08 10^6/uL (4.30-6.10); WHITE BLOOD COUNT 16.1 10^3/uL (4.0-10.0)
[2018-12-11 05:34] LABS: BLOOD UREA NITROGEN 23 MG/DL (7-18); CARBON DIOXIDE LEVEL 37 MEQ/L (21-32); CHLORIDE LEVEL 104 MEQ/L (98-107); GLOMERULAR FILTRATION RATE > 60.0 (>49); GLUCOSE, FASTING 184 MG/DL (70-100); POTASSIUM SERUM 3.5 MEQ/L (3.5-5.1); SODIUM LEVEL 143 MEQ/L (136-145)
[2018-12-11] MEDS: HumaLOG INSULIN (NovoLOG) PER UNIT SC SCH ×4 (07:35→20:21)
[2018-12-11] MEDS: RIVAROXABAN 20 MG TAB (XARELTO) PO SCH (07:41)
[2018-12-11] MEDS: SYMBICORT 160/4.5MCG INHALER 6GM INH SCH ×2 (07:50→19:52)
[2018-12-11] MEDS: TIOTROPIUM INHALER/CAPSULE (SPIRIVA) INH SCH (07:50)
[2018-12-11] MEDS: CALCIUM CARBONATE 500 MG CHEW U/D PO SCH (09:18)
[2018-12-11] MEDS: LEVEMIR (INSULIN DETEMIR) 1 UNITS/0.01ML SC SCH ×2 (09:18→20:21)
[2018-12-11] MEDS: POTASSIUM CHLORIDE 10 MEQ SR TABLET PO SCH (09:19)
[2018-12-11] MEDS: SPIRONOLACTONE 25 MG TAB PO SCH (09:19)
[2018-12-11] MEDS: AMIODARONE 200 MG TAB (PACERONE) PO SCH ×4 (09:19→20:19)
[2018-12-11] MEDS: PANTOPRAZOLE 40MG TAB (PROTONIX) PO SCH (09:20)
[2018-12-11] MEDS: SITagliptin 50 MG TAB (JANUVIA) PO SCH (09:20)
[2018-12-11] MEDS: NEBIVOLOL 5 MG TAB (BYSTOLIC) PO SCH ×2 (09:20→20:14)
[2018-12-11] MEDS: MAGNESIUM OXIDE 400 MG TAB (MAG-OX) PO SCH ×2 (09:20→20:18)
[2018-12-11] MEDS: TORSEMIDE 20 MG TAB PO SCH ×3 (09:20→20:18)
--- NOTE | 2018-12-11 11:36 | IPNPDOC ---
Subjective Date Seen The patient was seen on 12/11/18. Subjective Chief Complaint/HPI Feeling better less SOB. Close to his usual breathing. Having good urine output and leg swelling is improving. No fever or chills, no chest pain . Does have some cough and intermittent wheezing. Having regular bowel movement. Objective Physical Examination General Exam: Positive: Alert, Cooperative, No Acute Distress Eye Exam: Positive: PERRLA, Conjunctiva & lids normal, EOMI; Negative: Sclera icteric ENT Exam: Positive: Atraumatic, Mucous membr. moist/pink, Pharynx Normal Neck Exam: Positive: Supple, JVD Chest Exam: Positive: Clear to auscultation, Diminished Heart Exam: Positive: Tachycardic, Irregular Rhythm, Normal S1, Normal S2; Negative: Regular Rhythm, Gallops, Murmurs, Rubs, Other Telemetry: Positive: Atrial fibrillation Abdomen Exam: Positive: Normal bowel sounds, Soft Extremity Exam: Positive: Edema; Negative: Clubbing, Cyanosis Skin Exam: Positive: Nl turgor and temperature; Negative: Breakdown, Lesion Neuro Exam: Positive: Normal Gait, Normal Speech, Cranial Nerves 3-12 NL, Reflexes 2+ Psych Exam: Positive: Mental status NL, Mood NL, Oriented x 3 Assessment /Plan Assessment 63 aliya old male with PMH of Diastolic CHF, copd with chronic respiratory failure with hypoxia, Morbid obesity , ROBBIN on CPAP, diabetes, hypertension, hyperlipidemia, Paroxysmal atrial fibrillation, hypomagnesemia, GERD, h/o colon cancer s/p partial colectomy in 2012 presented initially to the [facility] ED on 12/08/18 at the insistence of his friend for Shortness of breath worse for 1 day orthopniec over night normally he uses 2 pillow but could not lay down last night. Chika had associated cough with greenish sputum production over the past 4 days. He has been feeling generally unwell with malaise and subjective chills for the ast 5 days. He also had a n associated sore throat. He thought he had a cold. He was also started on spironolactone 1 week and though that was making him sick but ever after stopping the medication he did not feel any better. In the ED of the other hospital CXR showed RLL infiltrates and pulmonary vascular congestion. He was diagnosed with Pneumonia and CHF. He was given 80 mg of Lasix with 3000 ml Urine output which really improved his breathing. His blood pressure was uncontrolled so he was also started on nitro gtt. He was also give ceftriaxone and azithromycin. He was transferred here for further care. Parainfluenza viral respiratory infection with post infectious viral pneumonia procalcitonin is not elevated so he does not have a bacterial pneumonia continue symptomatic treatment will stop antibiotics. Paroxysmal A fib Now in Afib with rvr consulted cardiology continue nebivolol, amiodarone, diltiazem and digoxin as per cardiology recommendations doses are being adjusted by Cardio. rate still 110 to 130 continue xarelto Diastolic CHF exacerbation Echo from diaphragm builder office from september 2018 shows ED of 55% patient was in Afib then also with rate of 122. On torsemide, spironolactone. fluid restriction 1.8 liters. Patient admits to drinking a lot of fluids at home. Possible RLL pneumonia this is viral pneumonia procalcitonin no elevated stopped ceftriaxone and azithromycin COPD exacerbation Parainfluenza infection, fluid overload and pneumonia continue nebs prn and iv steroids. will start weaning steroids. symbicort and spiriva Chronic hypoxic respiratory failure patient is at baseline oxygen requirements will continue Morbid Obesity and ROBBIN continue CPAP Lactacidosis due to COPD exacerbation and CHF exacerbation with increased work of breathing. continue treatment for the above Hypertension with hypertensive heart disease diltiazem, betablocker ,lasix. nitroglycerine gtt weaned off Diabetes sugars uncontrolled worsened now due to steroids. on levemir and lispro and januvia. glipizide stopped. Hyperlipidemia continue statin. GERD continue PPI DVT prophylaxis on xarelto Plan/VTE VTE Prophylaxis Ordered?: Yes VS, I&O, 24H, Fishbone Vital Signs/I&O Vital Signs Date Time Temp Pulse Resp B/P (MAP) Pulse Ox O2 Delivery O2 Flow Rate FiO2 12/11/18 09:20 117 124/83 12/11/18 09:18 96 2.0 12/11/18 08:00 98.4 22 I&O- Last 24 Hours up to 6 AM 12/11/18 06:00 Intake Total 1120 ml Output Total 2700 ml Balance -1580 ml Laboratory Data 24H LABS Laboratory Tests 2 12/10/18 11:37: Bedside Glucose (Misc Panel) 247H 12/10/18 14:54: Lactic Acid Level 3.0*H 12/10/18 17:05: Bedside Glucose (Misc Panel) 211H 12/10/18 19:18: Lactic Acid Followup at 4 Hours 3.3*H 12/10/18 20:20: Bedside Glucose (Misc Panel) 296H 12/11/18 04:56: Immature Granulocyte % (Auto) 0.7, White Blood Count 16.1H, Red Blood Count 5.08, Hemoglobin 15.0, Hematocrit 45.9, Mean Corpuscular Volume 90.4, Mean Corpuscular Hemoglobin 29.5, Mean Corpuscular Hemoglobin Concent 32.7, Red Cell Distribution Width 14.8H, Platelet Count 266, Neutrophils (%) (Auto) 85.1H, Lymphocytes (%) (Auto) 6.6L, Monocytes (%) (Auto) 7.5H, Eosinophils (%) (Auto) 0.0, Basophils (%) (Auto) 0.1, Neutrophils # (Auto) 13.7H, Lymphocytes # (Auto) 1.1L, Monocytes # (Auto) 1.2H, Eosinophils # (Auto) 0.0, Basophils # (Auto) 0.0, Nucleated Red Blood Cells % (auto) 0.0, Anion Gap 2L, Glomerular Filtration Rate > 60.0, Blood Urea Nitrogen 23H, Creatinine 0.80, Sodium Level 143, Potassium Level 3.5, Chloride Level 104, Carbon Dioxide Level 37H, Calcium Level 9.0 CBC/BMP Laboratory Tests 12/11/18 04:56 Red Blood Count 5.08, Mean Corpuscular Volume 90.4, Mean Corpuscular Hemoglobin 29.5, Mean Corpuscular Hemoglobin Concent 32.7, Red Cell Distribution Width 14.8 H, Neutrophils (%) (Auto) 85.1 H, Lymphocytes (%) (Auto) 6.6 L, Monocytes (%) (Auto) 7.5 H, Eosinophils (%) (Auto) 0.0, Basophils (%) (Auto) 0.1, Neutrophils # (Auto) 13.7 H, Lymphocytes # (Auto) 1.1 L, Monocytes # (Auto) 1.2 H, Eosinophils # (Auto) 0.0, Basophils # (Auto) 0.0, Calcium Level 9.0 Microbiology Microbiology 12/08/18 Respiratory Virus Panel (PCR) ([facility]) - Final, Complete Parainfluenza 3 (Piv3) CHRISTINA LOVING MD December 11, 2018 11:36
[2018-12-11] MEDS ORDERED: DIGOXIN 0.25 MG TAB PO ONE (17:00)
--- NOTE | 2018-12-11 17:13 | IPN ---
DATE: 12/11/2018 Seen at 4:55 p.m. SUBJECTIVE: The patient reports absence of any dyspnea when ambulating around his room. No orthopnea or paroxysmal nocturnal dyspnea (PND). He reports edema is much better in both of his legs but still has some. No chest pain or chest discomfort. No dizziness or lightheadedness. Overall, he reports feeling well. PHYSICAL EXAMINATION: Temperature 97.9, pulse 119 (irregularly irregular), respiratory rate 20, blood pressure 136/89, oxygen saturation 96% on oxygen two liters by nasal cannula. Weight today 125.5 kg. He was net negative 2290 mL for the 24 hours of 12/10/2018. Jugular venous pulsations were at 15 cm with the patient sitting up at 90 degrees. Respiratory expansion effort was fair. No crackles or wheezes. First and second heart sounds were variable intensity. No S3. Abdomen was soft, nontender with normal bowel sounds. 1-2 mm of pitting edema was present at mid tibia level bilaterally. LABORATORY WORK 12/11/2018: Sodium 143, potassium 3.5, chloride 104, CO2 37, BUN 23, estimated GFR greater than 60, creatinine 0.80, glucose 184. ASSESSMENT AND PLAN: 1. Paroxysmal atrial fibrillation. The patient continues to be in atrial fibrillation with a rapid rate. Steady progress has been made on getting the overall heart rate controlled. He is still going faster than I would like to see. I will add digoxin 0.125 mg daily. He will get an extra 0.25 mg dose of digoxin by mouth today. Continue diltiazem 90 mg by mouth every eight hours, nebivolol 20 mg twice a day, Xarelto 20 mg daily. 2. Acute on chronic diastolic heart failure. The patient remains decompensated but demonstrating an excellent net negative fluid balance. Furthermore, his renal function is remaining stable. Blood pressure has now come under good control. The plan will be to continue with nebivolol, diltiazem, valsartan, torsemide, and spironolactone at the current dosages. 3. Systemic hypertension. Blood pressure has now come under good control. Continue valsartan, spironolactone, torsemide, diltiazem, nebivolol, spironolactone. 4. Hyperlipidemia. Continue on dietary approaches to stop hypertension (DASH) diet and atorvastatin 80 mg at bedtime.
[2018-12-11] MEDS: ATORVASTATIN 20 MG TAB PO SCH (20:17)
[2018-12-11] MEDS: VALSARTAN 80 MG TAB (DIOVAN) PO SCH (20:20)
[2018-12-12] VITALS (8 sets, daily range): BP systolic 122–181; BP diastolic 80–104
[2018-12-12] MEDS: methylPREDNISolone INJ 40 MG/1 ML VIAL (J2920) IV SCH (04:38)
[2018-12-12 04:57] LABS: BASO % 0.2 % (0.0-1.0); HEMOGLOBIN 15.7 g/dl (13.5-17.5); LYMPH % 6.3 % (24.0-44.0); MEAN CORPUSCULAR HEMOGLOBIN 29.6 pg (27.0-33.0); MEAN CORPUSCULAR VOLUME 92.3 fl (80.0-96.0); MONO # 1.4 10^3/uL (0.0-0.8); MONO % 9.3 % (0.0-5.0); NEUTROPHILS # 12.8 10^3/uL (1.8-7.7); PLATELET COUNT, AUTOMATED 269 10^3/uL (150-450); RED BLOOD COUNT 5.31 10^6/uL (4.30-6.10); WHITE BLOOD COUNT 15.5 10^3/uL (4.0-10.0)
[2018-12-12 06:30] LABS: BLOOD UREA NITROGEN 26 MG/DL (7-18); CALCIUM LEVEL 9.2 MG/DL (8.8-10.2); CARBON DIOXIDE LEVEL 38 MEQ/L (21-32); CHLORIDE LEVEL 101 MEQ/L (98-107); CREATININE FOR GFR 0.87 MG/DL (0.70-1.30); GLOMERULAR FILTRATION RATE > 60.0 (>49); GLUCOSE, FASTING 156 MG/DL (70-100); POTASSIUM SERUM 3.8 MEQ/L (3.5-5.1); SODIUM LEVEL 145 MEQ/L (136-145)
[2018-12-12] MEDS: TIOTROPIUM INHALER/CAPSULE (SPIRIVA) INH SCH (07:20)
[2018-12-12] MEDS: HumaLOG INSULIN (NovoLOG) PER UNIT SC SCH ×4 (08:15→21:52)
[2018-12-12] MEDS: LEVEMIR (INSULIN DETEMIR) 1 UNITS/0.01ML SC SCH ×2 (08:15→21:52)
[2018-12-12] MEDS: TORSEMIDE 20 MG TAB PO SCH ×3 (08:16→21:53)
[2018-12-12] MEDS: CALCIUM CARBONATE 500 MG CHEW U/D PO SCH (08:16)
[2018-12-12] MEDS: MAGNESIUM OXIDE 400 MG TAB (MAG-OX) PO SCH ×2 (08:16→21:54)
[2018-12-12] MEDS: RIVAROXABAN 20 MG TAB (XARELTO) PO SCH (08:16)
[2018-12-12] MEDS: SPIRONOLACTONE 25 MG TAB PO SCH (08:16)
[2018-12-12] MEDS: SITagliptin 50 MG TAB (JANUVIA) PO SCH (08:16)
[2018-12-12] MEDS: PANTOPRAZOLE 40MG TAB (PROTONIX) PO SCH (08:16)
[2018-12-12] MEDS: POTASSIUM CHLORIDE 10 MEQ SR TABLET PO SCH (08:17)
[2018-12-12] MEDS: AMIODARONE 200 MG TAB (PACERONE) PO SCH ×4 (08:17→21:54)
[2018-12-12] MEDS: NEBIVOLOL 5 MG TAB (BYSTOLIC) PO SCH ×2 (08:18→21:53)
[2018-12-12] MEDS: DIGOXIN 0.125 MG TAB PO SCH (08:18)
[2018-12-12 08:42] LABS: NT-PRO BNP 1897 PG/ML (<125); THYROID STIMULATING HORMONE 0.201 uIU/ML (0.358-3.740)
--- NOTE | 2018-12-12 15:06 | IPNPDOC ---
Subjective Date Seen The patient was seen on 12/12/18. Subjective Chief Complaint/HPI Feels better. Says his breathing is back to usual though he still has episodes of hacking cough. He does not complain of any palpitation or chest pain. No abdominal pain , nausea or vomiting or diarrhea. Has been having regular bowel movements. Objective Physical Examination General Exam: Positive: Alert, Cooperative, No Acute Distress Eye Exam: Positive: PERRLA, Conjunctiva & lids normal, EOMI; Negative: Sclera icteric ENT Exam: Positive: Atraumatic, Mucous membr. moist/pink, Pharynx Normal Neck Exam: Positive: Supple, JVD Chest Exam: Positive: Clear to auscultation, Diminished Heart Exam: Positive: Tachycardic, Irregular Rhythm, Normal S1, Normal S2; Negative: Regular Rhythm, Gallops, Murmurs, Rubs, Other Telemetry: Positive: Atrial fibrillation Abdomen Exam: Positive: Normal bowel sounds, Soft Extremity Exam: Positive: Edema; Negative: Clubbing, Cyanosis Skin Exam: Positive: Nl turgor and temperature; Negative: Breakdown, Lesion Neuro Exam: Positive: Normal Gait, Normal Speech, Cranial Nerves 3-12 NL, Reflexes 2+ Psych Exam: Positive: Mental status NL, Mood NL, Oriented x 3 Assessment /Plan Assessment 63 aliya old male with PMH of Diastolic CHF, copd with chronic respiratory failure with hypoxia, Morbid obesity , ROBBIN on CPAP, diabetes, hypertension, hyperlipidemia, Paroxysmal atrial fibrillation, hypomagnesemia, GERD, h/o colon cancer s/p partial colectomy in 2012 presented initially to the [facility] ED on 12/08/18 at the insistence of his friend for Shortness of breath worse for 1 day orthopniec over night normally he uses 2 pillow but could not lay down last night. Chika had associated cough with greenish sputum production over the past 4 days. He has been feeling generally unwell with malaise and subjective chills for the ast 5 days. He also had a n associated sore throat. He thought he had a cold. He was also started on spironolactone 1 week and though that was making him sick but ever after stopping the medication he did not feel any better. In the ED of the other hospital CXR showed RLL infiltrates and pulmonary vascular congestion. He was diagnosed with Pneumonia and CHF. He was given 80 mg of Lasix with 3000 ml Urine output which really improved his breathing. His blood pressure was uncontrolled so he was also started on nitro gtt. He was also give ceftriaxone and azithromycin. He was transferred here for further care. Parainfluenza viral respiratory infection with post infectious viral pneumonia procalcitonin is not elevated so he does not have a bacterial pneumonia continue symptomatic treatment will stop antibiotics. Paroxysmal A fib Now in Afib with rvr consulted cardiology continue nebivolol, amiodarone, diltiazem and digoxin as per cardiology recommendations doses are being adjusted by Cardio. 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 On torsemide, spironolactone. fluid restriction 1.8 liters. Patient admits to drinking a lot of fluids at home. Possible RLL pneumonia this is viral pneumonia procalcitonin no elevated stopped ceftriaxone and azithromycin COPD exacerbation Parainfluenza infection, fluid overload and pneumonia continue nebs prn and iv steroids. will start weaning steroids. symbicort and spiriva Chronic hypoxic respiratory failure patient is at baseline oxygen requirements will continue Morbid Obesity and ROBBIN continue CPAP Lactacidosis due to COPD exacerbation and CHF exacerbation with increased work of breathing. continue treatment for the above Hypertension with hypertensive heart disease diltiazem, betablocker ,lasix. nitroglycerine gtt weaned off Diabetes sugars uncontrolled worsened now due to steroids. on levemir and lispro and januvia. glipizide stopped. Hyperlipidemia continue statin. Low TSH levels will check free t3 and t4 levels. GERD continue PPI DVT prophylaxis on xarelto Plan/VTE VTE Prophylaxis Ordered?: Yes VS, I&O, 24H, Fishbone Vital Signs/I&O Vital Signs Date Time Temp Pulse Resp B/P (MAP) Pulse Ox O2 Delivery O2 Flow Rate FiO2 12/12/18 12:44 125 137/92 12/12/18 12:00 98.0 18 93 1.0 I&O- Last 24 Hours up to 6 AM 12/12/18 06:00 Intake Total 1370 ml Output Total 3850 ml Balance -2480 ml Laboratory Data 24H LABS Laboratory Tests 2 12/11/18 16:55: Bedside Glucose (Misc Panel) 203H 12/11/18 20:08: Bedside Glucose (Misc Panel) 328H 12/12/18 04:37: Immature Granulocyte % (Auto) 1.2, White Blood Count 15.5H, Red Blood Count 5.31, Hemoglobin 15.7, Hematocrit 49.0, Mean Corpuscular Volume 92.3, Mean Corpuscular Hemoglobin 29.6, Mean Corpuscular Hemoglobin Concent 32.0, Red Cell Distribution Width 14.6H, Platelet Count 269, Neutrophils (%) (Auto) 83.0H, Lymphocytes (%) (Auto) 6.3L, Monocytes (%) (Auto) 9.3H, Eosinophils (%) (Auto) 0.0, Basophils (%) (Auto) 0.2, Neutrophils # (Auto) 12.8H, Lymphocytes # (Auto) 1.0L, Monocytes # (Auto) 1.4H, Eosinophils # (Auto) 0.0, Basophils # (Auto) 0.0, Nucleated Red Blood Cells % (auto) 0.0 12/12/18 05:45: Anion Gap 6L, Glomerular Filtration Rate > 60.0, Blood Urea Nitrogen 26H, Creatinine 0.87, Sodium Level 145, Potassium Level 3.8, Chloride Level 101, Carbon Dioxide Level 38H, Calcium Level 9.2, FO-Uzo-B-Type Natriuretic Peptide 1897H, Thyroid Stimulating Hormone (TSH) 0.201L 12/12/18 11:56: Bedside Glucose (Misc Panel) 171H CBC/BMP Laboratory Tests 12/12/18 04:37 Red Blood Count 5.31, Mean Corpuscular Volume 92.3, Mean Corpuscular Hemoglobin 29.6, Mean Corpuscular Hemoglobin Concent 32.0, Red Cell Distribution Width 14.6 H, Neutrophils (%) (Auto) 83.0 H, Lymphocytes (%) (Auto) 6.3 L, Monocytes (%) (Auto) 9.3 H, Eosinophils (%) (Auto) 0.0, Basophils (%) (Auto) 0.2, Neutrophils # (Auto) 12.8 H, Lymphocytes # (Auto) 1.0 L, Monocytes # (Auto) 1.4 H, Eosinophils # (Auto) 0.0, Basophils # (Auto) 0.0 12/12/18 05:45 Calcium Level 9.2 Microbiology Microbiology 12/08/18 Respiratory Virus Panel (PCR) ([facility]) - Final, Complete Parainfluenza 3 (Piv3) CHRISTINA LOVING MD December 12, 2018 15:06
--- NOTE | 2018-12-12 18:45 | ECGEPIP ---
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
[2018-12-12] MEDS: SYMBICORT 160/4.5MCG INHALER 6GM INH SCH (20:24)
[2018-12-12] MEDS: ATORVASTATIN 20 MG TAB PO SCH (21:53)
[2018-12-12] MEDS: VALSARTAN 80 MG TAB (DIOVAN) PO SCH (21:54)
[2018-12-13 04:00] VITALS: BP 118/73
[2018-12-13 06:52] LABS: BASO # 0.1 10^3/uL (0.0-0.2); BASO % 0.3 % (0.0-1.0); EOS % 0.1 % (0.0-3.0); HEMATOCRIT 53.2 % (42.0-52.0); HEMOGLOBIN 17.3 g/dl (13.5-17.5); LYMPH # 1.9 10^3/uL (1.5-4.5); LYMPH % 10.6 % (24.0-44.0); MEAN CORPUSCULAR HEMOGLOBIN 29.2 pg (27.0-33.0); MEAN CORPUSCULAR HGB CONC 32.5 g/dl (32.0-36.5); MEAN CORPUSCULAR VOLUME 89.9 fl (80.0-96.0); MONO % 11.6 % (0.0-5.0); NEUTROPHILS # 13.5 10^3/uL (1.8-7.7); NEUTROPHILS % 75.7 % (36.0-66.0); PLATELET COUNT, AUTOMATED 328 10^3/uL (150-450); RED BLOOD COUNT 5.92 10^6/uL (4.30-6.10); WHITE BLOOD COUNT 17.8 10^3/uL (4.0-10.0)
[2018-12-13 07:08] LABS: BLOOD UREA NITROGEN 30 MG/DL (7-18); CALCIUM LEVEL 8.3 MG/DL (8.8-10.2); CARBON DIOXIDE LEVEL 36 MEQ/L (21-32); CHLORIDE LEVEL 99 MEQ/L (98-107); CREATININE FOR GFR 0.92 MG/DL (0.70-1.30); GLOMERULAR FILTRATION RATE > 60.0 (>49); GLUCOSE, FASTING 107 MG/DL (70-100); POTASSIUM SERUM 3.5 MEQ/L (3.5-5.1); SODIUM LEVEL 142 MEQ/L (136-145)
[2018-12-13] MEDS: TIOTROPIUM INHALER/CAPSULE (SPIRIVA) INH SCH (07:12)
[2018-12-13] MEDS: SYMBICORT 160/4.5MCG INHALER 6GM INH SCH ×2 (07:12→20:23)
[2018-12-13 07:37] LABS: MONO # 2.1 10^3/uL (0.0-0.8)
[2018-12-13 07:45] LABS: FREE T3 2.3 PG/ML (2.2-4.0); FREE T4 1.59 NG/DL (0.76-1.46)
[2018-12-13 08:00] VITALS: BP 145/80
[2018-12-13] MEDS: HumaLOG INSULIN (NovoLOG) PER UNIT SC SCH ×4 (08:44→21:00)
[2018-12-13] MEDS: LEVEMIR (INSULIN DETEMIR) 1 UNITS/0.01ML SC SCH ×2 (08:44→21:14)
[2018-12-13] MEDS: PANTOPRAZOLE 40MG TAB (PROTONIX) PO SCH (08:45)
[2018-12-13] MEDS: predniSONE 20 MG TAB PO SCH (08:45)
[2018-12-13] MEDS: MAGNESIUM OXIDE 400 MG TAB (MAG-OX) PO SCH ×2 (08:45→21:17)
[2018-12-13] MEDS: POTASSIUM CHLORIDE 10 MEQ SR TABLET PO SCH (08:45)
[2018-12-13] MEDS: CALCIUM CARBONATE 500 MG CHEW U/D PO SCH (08:46)
[2018-12-13] MEDS: DIGOXIN 0.125 MG TAB PO SCH (08:46)
[2018-12-13] MEDS: SPIRONOLACTONE 25 MG TAB PO SCH (08:46)
[2018-12-13] MEDS: TORSEMIDE 20 MG TAB PO SCH ×3 (08:46→21:16)
[2018-12-13] MEDS: RIVAROXABAN 20 MG TAB (XARELTO) PO SCH (08:46)
[2018-12-13] MEDS: SITagliptin 50 MG TAB (JANUVIA) PO SCH (08:46)
[2018-12-13] MEDS: AMIODARONE 200 MG TAB (PACERONE) PO SCH (08:47)
[2018-12-13] MEDS: NEBIVOLOL 5 MG TAB (BYSTOLIC) PO SCH ×2 (08:47→21:15)
[2018-12-13] MEDS ORDERED: SLF 3 ML SYR IV PRN (09:15)
--- NOTE | 2018-12-13 09:43 | IPNPDOC ---
Subjective Date Seen The patient was seen on 12/13/18. Subjective Chief Complaint/HPI Today patient is complaining of feeling very tired. Had bowel movements, Continues to have some cough but it is getting better, denied any SOB . Denied any palpitation. He remains in Afib with rate ranging from 90 to 120. Objective Physical Examination General Exam: Positive: Alert, Cooperative, No Acute Distress Eye Exam: Positive: PERRLA, Conjunctiva & lids normal, EOMI; Negative: Sclera icteric ENT Exam: Positive: Atraumatic, Mucous membr. moist/pink, Pharynx Normal Neck Exam: Positive: Supple, JVD Chest Exam: Positive: Clear to auscultation, Diminished Heart Exam: Positive: Tachycardic, Irregular Rhythm, Normal S1, Normal S2; Negative: Regular Rhythm, Gallops, Murmurs, Rubs, Other Telemetry: Positive: Atrial fibrillation Abdomen Exam: Positive: Normal bowel sounds, Soft Extremity Exam: Positive: Edema; Negative: Clubbing, Cyanosis Skin Exam: Positive: Nl turgor and temperature; Negative: Breakdown, Lesion Neuro Exam: Positive: Normal Gait, Normal Speech, Cranial Nerves 3-12 NL, Reflexes 2+ Psych Exam: Positive: Mental status NL, Mood NL, Oriented x 3 Assessment /Plan Assessment 63 aliya old male with PMH of Diastolic CHF, copd with chronic respiratory failure with hypoxia, Morbid obesity , ROBBIN on CPAP, diabetes, hypertension, hyperlipidemia, Paroxysmal atrial fibrillation, hypomagnesemia, GERD, h/o colon cancer s/p partial colectomy in 2012 presented initially to the [facility] ED on 12/08/18 at the insistence of his friend for Shortness of breath worse for 1 day orthopniec over night normally he uses 2 pillow but could not lay down last night. Chika had associated cough with greenish sputum production over the past 4 days. He has been feeling generally unwell with malaise and subjective chills for the ast 5 days. He also had a n associated sore throat. He thought he had a cold. He was also started on spironolactone 1 week and though that was making him sick but ever after stopping the medication he did not feel any better. In the ED of the other hospital CXR showed RLL infiltrates and pulmonary vascular congestion. He was diagnosed with Pneumonia and CHF. He was given 80 mg of Lasix with 3000 ml Urine output which really improved his breathing. His blood pressure was uncontrolled so he was also started on nitro gtt. He was also give ceftriaxone and azithromycin. He was transferred here for further care. Parainfluenza viral respiratory infection with post infectious viral pneumonia procalcitonin is not elevated so he does not have a bacterial pneumonia continue symptomatic treatment will stop antibiotics. Paroxysmal A fib Now in Afib with rvr consulted cardiology continue nebivolol, amiodarone, diltiazem and digoxin as per cardiology recommendations doses are being adjusted by Cardio. 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 On torsemide, spironolactone. fluid restriction 1.8 liters. Patient admits to drinking a lot of fluids at home. RLL viral pneumonia procalcitonin no elevated stopped ceftriaxone and azithromycin COPD exacerbation Parainfluenza infection, fluid overload and pneumonia continue nebs prn and iv steroids. will start weaning steroids. symbicort and spiriva Chronic hypoxic respiratory failure patient is at baseline oxygen requirements will continue Morbid Obesity and ROBBIN continue CPAP Lacticacidosis due to COPD exacerbation and CHF exacerbation with increased work of breathing. continue treatment for the above Hypertension with hypertensive heart disease diltiazem, betablocker ,lasix. nitroglycerine gtt weaned off Diabetes sugars uncontrolled worsened now due to steroids. on levemir and lispro and januvia. glipizide stopped. Hyperlipidemia continue statin. Low TSH levels will check free t3 and t4 levels. GERD continue PPI DVT prophylaxis on xarelto Plan/VTE VTE Prophylaxis Ordered?: Yes VS, I&O, [facility]O Vital Signs Date Time Temp Pulse Resp B/P (MAP) Pulse Ox O2 Delivery O2 Flow Rate FiO2 12/13/18 08:47 114 145/80 12/13/18 08:00 96.7 20 95 1.0 I&O- Last 24 Hours up to 6 AM 12/13/18 06:00 Intake Total 1830 ml Output Total 3695 ml Balance -1865 ml Laboratory Data 24H LABS Laboratory Tests 2 12/12/18 11:56: Bedside Glucose (Misc Panel) 171H 12/12/18 17:07: Bedside Glucose (Misc Panel) 247H 12/12/18 21:28: Bedside Glucose (Misc Panel) 255H 12/13/18 06:29: Immature Granulocyte % (Auto) 1.7, White Blood Count 17.8H, Red Blood Count 5.92, Hemoglobin 17.3, Hematocrit 53.2H, Mean Corpuscular Volume 89.9, Mean Corpuscular Hemoglobin 29.2, Mean Corpuscular Hemoglobin Concent 32.5, Red Cell Distribution Width 14.6H, Platelet Count 328, Neutrophils (%) (Auto) 75.7H, Lymphocytes (%) (Auto) 10.6L, Monocytes (%) (Auto) 11.6H, Eosinophils (%) (Auto) 0.1, Basophils (%) (Auto) 0.3, Neutrophils # (Auto) 13.5H, Lymphocytes # (Auto) 1.9, Monocytes # (Auto) 2.1H, Eosinophils # (Auto) 0.0, Basophils # (Auto) 0.1, Nucleated Red Blood Cells % (auto) 0.0, Anion Gap 7L, Glomerular Filtration Rate > 60.0, Lactic Acid Level 1.7, Blood Urea Nitrogen 30H, Creatinine 0.92, Sodium Level 142, Potassium Level 3.5, Chloride Level 99, Carbon Dioxide Level 36H, Calcium Level 8.3L, Free Thyroxine 1.59H, Free Triiodothyronine 2.3 CBC/BMP Laboratory Tests 12/13/18 06:29 Red Blood Count 5.92, Mean Corpuscular Volume 89.9, Mean Corpuscular Hemoglobin 29.2, Mean Corpuscular Hemoglobin Concent 32.5, Red Cell Distribution Width 14.6 H, Neutrophils (%) (Auto) 75.7 H, Lymphocytes (%) (Auto) 10.6 L, Monocytes (%) (Auto) 11.6 H, Eosinophils (%) (Auto) 0.1, Basophils (%) (Auto) 0.3, Neutrophils # (Auto) 13.5 H, Lymphocytes # (Auto) 1.9, Monocytes # (Auto) 2.1 H, Eosinophils # (Auto) 0.0, Basophils # (Auto) 0.1, Calcium Level 8.3 L Microbiology Microbiology 12/08/18 Respiratory Virus Panel (PCR) ([facility]) - Final, Complete Parainfluenza 3 (Piv3) CHRISTINA LOVING MD December 13, 2018 09:43
[2018-12-13 12:00] VITALS: BP 141/93
--- NOTE | 2018-12-13 12:25 | REP ---
HISTORY: Followup CHF. COMPARISON: Portable examination of 12/08/2018. There are unchanged right basilar opacities with suspected right pleural effusion/subsegmental atelectasis. There are no new abnormal opacities. Note is again made of cardiomegaly, status quo. There is no significant change in the osseous structures. IMPRESSION: No significant change from the prior exam other than technique. Electronically Signed by Jasen Hernandez DO 12/13/2018 12:27 P
--- NOTE | 2018-12-13 12:56 | IPN ---
CARDIOLOGY PROGRESS NOTE: DATE: 12/13/2018 SUBJECTIVE: The patient claims his shortness of breath that brought him originally to hospital has significantly improved with combination diuretic bronchodilator and antibiotic therapy. Still has an intermittent cough occasionally productive purulent sputum, has not felt feverish. His shortness of breath has significantly improved. Has been sleeping well with his continuous positive airway pressure (CPAP). On his current combination medical therapy remains unaware of his heart action. Up in the room has not experienced any lightheadedness or faintness. OBJECTIVE: Obese, late middle-aged male sat comfortably on the edge of the bed in the progressive care unit. No pallor or cyanosis. Currently wearing supplemental oxygen by nasal prongs. Flow rate was 1 liter per minute. Heart rate by pulse 88 beats per minute. Monitor shows a rate of 112 beats per minute. Blood pressure 112/70 sitting. Respiratory rate 18 per minute. Oxygen saturation 95%. Afebrile. Curiously has generated a negative fluid balance of at least 1-2 liters daily for the past 5 days, yet his weight has remained exactly the same query, query. Normal oral moisture. Trachea midline. Neck veins somewhat challenging to evaluate because of his body habitus. Carotid upstroke was normal with variable volume related to his arrhythmia. Increased anteroposterior chest diameter with reduced chest expansion. Has reduced air entry but no inspiratory rales. Slight prolongation of expiration but no audible wheeze. Apical impulse not palpable because of his barrel chest and obesity. Heart sounds were very distant. No audible murmur. Has mostly nonpitting swelling of both lower legs. His abdomen is soft, obese. 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 EKG: Study requested yesterday by myself shows ongoing underlying atrial fibrillation with a somewhat rapid ventricular response averaging 127 beats per minute. Has an incomplete bundle branch block (BBB) configuration with minuscule inferior Q-waves and nonspecific inferoapical ST/T wave abnormalities but these did not appear to be significantly changed from study performed 12/09/2018. LABORATORY DATA: Blood work earlier today shows a hemoglobin of 17.3. White blood cell count remains elevated at 17.8 thousand, but he is still on prednisone. Platelet count was normal. Chemistry today confirmed a mild degree of metabolic alkalosis but other electrolytes were normal. His admission albumin was normal at 3.3. BUN 30, up from 14 on admission. Creatinine 0.9, 0.8 on admission. Fasting glucose this morning 107. BNP level yesterday was elevated at 1897. TSH yesterday was decreased at 0.20 with free T4 elevated at 1.59. Free T3 was normal. IMPRESSION/PLAN: 1. Paroxysmal atrial fibrillation: This gentleman has had a history of prior bouts but on his combination metoprolol and diltiazem he was taking at the time of his admission his ventricular response was suboptimal. At this time on combination digoxin, Bystolic an increased diltiazem as well as amiodarone his ventricular response has slowed. In light of his hyperthyroidism, amiodarone therapy has been discontinued. He remains on Xarelto oral anticoagulation without evidence of systemic thromboembolic event or hemorrhagic complication. 2. Hyperthyroidism: I suspect this accounts for our difficulty controlling his ventricular response. His elevated free T4 and suppressed TSH are in keeping with primary hyperthyroidism. I have requested a thyroid uptake scan and thyroglobulin. I suspect this will prove he has Graves disease. At this point, in light of his ongoing rapid heart rate I have started him on Tapazole 5 mg by mouth every 8 hours. 3. Hypertensive heart disease (benign with heart failure)/heart failure (diastolic/acute on chronic): Reports his breathing has significantly improved following diuretic therapy and the treatment of his acute respiratory tract infection. His blood pressure currently is adequately controlled with combination diltiazem 120 mg by mouth every 6 hours, valsartan 160 mg daily, Bystolic 20 mg twice a day, spironolactone 25 mg daily, and torsemide 20 mg three times a day. Note is made of his slight degree of prerenal azotemia. With echocardiographic evidence showing primarily diastolic dysfunction I plan to discontinue his valsartan and reduce his torsemide should his BUN and creatinine increase again tomorrow. 4. Morbid obesity/obstructive sleep apnea/cor pulmonale (chronic): Undoubtedly this accounts for his right ventricular dysfunction and systemic congestion. Currently on combination bronchodilator DuoNebs, Spiriva, Symbicort, and prednisone therapy. Also continues on supplemental oxygen by nasal prongs and his CPAP therapies. We will continue to follow him closely with you and appreciate the opportunity to participate in his care while he is here in [place].
[2018-12-13] MEDS: SLF 3 ML SYR IV SCH ×2 (14:12→21:17)
[2018-12-13 19:54] VITALS: BP 135/86
[2018-12-13] MEDS: ATORVASTATIN 20 MG TAB PO SCH (21:16)
[2018-12-13] MEDS: VALSARTAN 80 MG TAB (DIOVAN) PO SCH (21:17)
[2018-12-13 23:59] VITALS: BP 124/68
[2018-12-14 04:00] VITALS: BP 150/90
[2018-12-14 05:21] LABS: BASO % 0.2 % (0.0-1.0); EOS # 0.1 10^3/uL (0.0-0.50); EOS % 0.6 % (0.0-3.0); HEMATOCRIT 52.4 % (42.0-52.0); HEMOGLOBIN 17.1 g/dl (13.5-17.5); LYMPH # 2.3 10^3/uL (1.5-4.5); LYMPH % 12.6 % (24.0-44.0); MEAN CORPUSCULAR HEMOGLOBIN 29.2 pg (27.0-33.0); MEAN CORPUSCULAR HGB CONC 32.6 g/dl (32.0-36.5); MEAN CORPUSCULAR VOLUME 89.6 fl (80.0-96.0); MONO % 11.3 % (0.0-5.0); NEUTROPHILS # 13.3 10^3/uL (1.8-7.7); NEUTROPHILS % 73.1 % (36.0-66.0); PLATELET COUNT, AUTOMATED 297 10^3/uL (150-450); RED BLOOD COUNT 5.85 10^6/uL (4.30-6.10); WHITE BLOOD COUNT 18.2 10^3/uL (4.0-10.0)
[2018-12-14 05:37] LABS: MONO # 2.1 10^3/uL (0.0-0.8)
[2018-12-14] MEDS: SLF 3 ML SYR IV SCH ×3 (05:44→21:37)
[2018-12-14 05:51] LABS: BLOOD UREA NITROGEN 35 MG/DL (7-18); CALCIUM LEVEL 8.2 MG/DL (8.8-10.2); CARBON DIOXIDE LEVEL 41 MEQ/L (21-32); CHLORIDE LEVEL 94 MEQ/L (98-107); CREATININE FOR GFR 1.15 MG/DL (0.70-1.30); GLOMERULAR FILTRATION RATE > 60.0 (>49); GLUCOSE, FASTING 196 MG/DL (70-100); POTASSIUM SERUM 3.1 MEQ/L (3.5-5.1); SODIUM LEVEL 142 MEQ/L (136-145)
[2018-12-14 07:37] LABS: MAGNESIUM LEVEL 2.3 MG/DL (1.8-2.4)
[2018-12-14] MEDS: TIOTROPIUM INHALER/CAPSULE (SPIRIVA) INH SCH (07:44)
[2018-12-14] MEDS: SYMBICORT 160/4.5MCG INHALER 6GM INH SCH ×2 (07:44→20:10)
[2018-12-14 08:00] VITALS: BP 110/66
[2018-12-14] MEDS: HumaLOG INSULIN (NovoLOG) PER UNIT SC SCH ×4 (08:45→21:33)
[2018-12-14] MEDS: LEVEMIR (INSULIN DETEMIR) 1 UNITS/0.01ML SC SCH ×2 (08:45→21:34)
[2018-12-14] MEDS: POTASSIUM CHLORIDE 10 MEQ SR TABLET PO SCH ×3 (08:46→21:34)
[2018-12-14] MEDS: PANTOPRAZOLE 40MG TAB (PROTONIX) PO SCH (08:48)
[2018-12-14] MEDS: MAGNESIUM OXIDE 400 MG TAB (MAG-OX) PO SCH ×2 (08:48→21:36)
[2018-12-14] MEDS: DIGOXIN 0.125 MG TAB PO SCH (08:48)
[2018-12-14] MEDS: predniSONE 20 MG TAB PO SCH (08:49)
[2018-12-14] MEDS: SPIRONOLACTONE 25 MG TAB PO SCH (08:49)
[2018-12-14] MEDS: SITagliptin 50 MG TAB (JANUVIA) PO SCH (08:49)
[2018-12-14] MEDS: RIVAROXABAN 20 MG TAB (XARELTO) PO SCH (08:49)
[2018-12-14] MEDS: CALCIUM CARBONATE 500 MG CHEW U/D PO SCH (08:50)
[2018-12-14] MEDS: NEBIVOLOL 5 MG TAB (BYSTOLIC) PO SCH ×2 (08:50→21:35)
[2018-12-14] MEDS: TORSEMIDE 20 MG TAB PO SCH (08:50)
--- NOTE | 2018-12-14 09:02 | IPNPDOC ---
Subjective Date Seen The patient was seen on 12/14/18. Subjective Chief Complaint/HPI His SOB is better though continues to have hacking coughing episodes. Does not produce any phlegm. No fever or chills, no chest pain or palpirtation. His pulse rate ranging from 90 to 120 this am .He remains in Afib in telemetry. His throid function tests are borderline abnormal with possibility of hyperthyroidism needs to be repeated in afew weeks time. Leg swelling has improved Objective Physical Examination General Exam: Positive: Alert, Cooperative, No Acute Distress Eye Exam: Positive: PERRLA, Conjunctiva & lids normal, EOMI; Negative: Sclera icteric ENT Exam: Positive: Atraumatic, Mucous membr. moist/pink, Pharynx Normal Neck Exam: Positive: Supple, JVD Chest Exam: Positive: Clear to auscultation, Diminished Heart Exam: Positive: Tachycardic, Irregular Rhythm, Normal S1, Normal S2; Negative: Regular Rhythm, Gallops, Murmurs, Rubs, Other Telemetry: Positive: Atrial fibrillation Abdomen Exam: Positive: Normal bowel sounds, Soft Extremity Exam: Positive: Edema (trace); Negative: Clubbing, Cyanosis Skin Exam: Positive: Nl turgor and temperature; Negative: Breakdown, Lesion Neuro Exam: Positive: Normal Gait, Normal Speech, Cranial Nerves 3-12 NL, Refle xes 2+ Psych Exam: Positive: Mental status NL, Mood NL, Oriented x 3 Assessment /Plan Assessment 3 ali[age] old male with PMH of Diastolic CHF, copd with chronic respiratory failure with hypoxia, Morbid obesity , ROBBIN on CPAP, diabetes, hypertension, hyperlipidemia, Paroxysmal atrial fibrillation, hypomagnesemia, GERD, h/o colon cancer s/p partial colectomy in 2012 presented initially to the [facility] ED on 12/08/18 at the insistence of his friend for Shortness of breath worse for 1 day orthopniec over night normally he uses 2 pillow but could not lay down last night. Chika had associated cough with greenish sputum production over the past 4 days. He has been feeling generally unwell with malaise and subjective chills for the ast 5 days. He also had a n associated sore throat. He thought he had a cold. He was also started on spironolactone 1 week and though that was making him sick but ever after stopping the medication he did not feel any better. In the ED of the other hospital CXR showed RLL infiltrates and pulmonary vascular congestion. He was diagnosed with Pneumonia and CHF. He was given 80 mg of Lasix with 3000 ml Urine output which really improved his breathing. His blood pressure was uncontrolled so he was also started on nitro gtt. He was also give ceftriaxone and azithromycin. He was transferred here for further care. Paroxysmal A fib Now in Afib with rvr consulted cardiology continue nebivolol, amiodarone, diltiazem and digoxin as per cardiology recommendations doses are being adjusted by Cardio. rate still varying between 90 to 120 continue xarelto Abnormal thyroid function tests with borderline raised FT4 levels. 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 Diastolic CHF exacerbation Echo from hand printed circuit board assembler office from september 2018 shows ED of 55% patient was in Afib then also with rate of 122. On torsemide, spironolactone. Bicarb rising may be developing metabolic alkalosis. will get an ABG. may have to cut back on his diuretics. fluid restriction 1.8 liters. Patient admits to drinking a lot of fluids at h ome. COPD exacerbation Parainfluenza infection, fluid overload and pneumonia continue nebs prn and iv steroids. will start weaning steroids. symbicort and spiriva Chronic hypoxic respiratory failure patient is at baseline oxygen requirements will continue Morbid Obesity and ROBBIN continue CPAP Lacticacidosis due to COPD exacerbation and CHF exacerbation with increased work of breathing. Hypertension with hypertensive heart disease diltiazem, betablocker ,lasix. nitroglycerine gtt weaned off Diabetes sugars uncontrolled worsened now due to steroids. on levemir and lispro and januvia. glipizide stopped. Hyperlipidemia continue statin. Low TSH levels will check free t3 and t4 levels. GERD continue PPI DVT prophylaxis on xarelto Plan/VTE VTE Prophylaxis Ordered?: Yes VS, I&O, 24H, Fishbone Vital Signs/I&O Vital Signs Date Time Temp Pulse Resp B/P (MAP) Pulse Ox O2 Delivery O2 Flow Rate FiO2 12/14/18 08:00 96.1 110 20 110/66 (81) 92 1.0 I&O- Last 24 Hours up to 6 AM 12/14/18 06:00 Intake Total 1860 ml Output Total 4100 ml Balance -2240 ml Laboratory Data 24H LABS Laboratory Tests 2 12/13/18 11:33: 12/13/18 12:32: Bedside Glucose (Misc Panel) 154H 12/13/18 16:58: Bedside Glucose (Misc Panel) 197H 12/13/18 20:54: Bedside Glucose (Misc Panel) 212H 12/14/18 04:49: Immature Granulocyte % (Auto) 2.2, White Blood Count 18.2H, Red Blood Count 5.85, Hemoglobin 17.1, Hematocrit 52.4H, Mean Corpuscular Volume 89.6, Mean Co rpuscular Hemoglobin 29.2, Mean Corpuscular Hemoglobin Concent 32.6, Red Cell Distribution Width 14.4, Platelet Count 297, Neutrophils (%) (Auto) 73.1H, Lymphocytes (%) (Auto) 12.6L, Monocytes (%) (Auto) 11.3H, Eosinophils (%) (Auto) 0.6, Basophils (%) (Auto) 0.2, Neutrophils # (Auto) 13.3H, Lymphocytes # (Auto) 2.3, Monocytes # (Auto) 2.1H, Eosinophils # (Auto) 0.1, Basophils # (Auto) 0.0, Nucleated Red Blood Cells % (auto) 0.0, Anion Gap 7L, Glomerular Filtration Rate > 60.0, Blood Urea Nitrogen 35H, Creatinine 1.15, Sodium Level 142, Potassium Level 3.1L, Chloride Level 94L, Carbon Dioxide Level 41H, Calcium Level 8.2L, Magnesium Level 2.3 CBC/BMP Laboratory Tests 12/14/18 04:49 Red Blood Count 5.85, Mean Corpuscular Volume 89.6, Mean Corpuscular Hemoglobin 29.2, Mean Corpuscular Hemoglobin Concent 32.6, Red Cell Distribution Width 14.4, Neutrophils (%) (Auto) 73.1 H, Lymphocytes (%) (Auto) 12.6 L, Monocytes (%) (Auto) 11.3 H, Eosinophils (%) (Auto) 0.6, Basophils (%) (Auto) 0.2, Neutrophils # (Auto) 13.3 H, Lymphocytes # (Auto) 2.3, Monocytes # (Auto) 2.1 H, Eosinophils # (Auto) 0.1, Basophils # (Auto) 0.0, Calcium Level 8.2 L Microbiology Microbiology 12/08/18 Respiratory Virus Panel (PCR) ([facility]) - Final, Complete Parainfluenza 3 (Piv3) CHRISTINA LOVING MD December 14, 2018 09:02
[2018-12-14 09:43] LABS: ABG HCO3 37.6 MEQ/L (22.0-26.0); ABG O2 SATURATION 90.8 % (95.0-99.0); ABG PARTIAL PRESSURE CO2 45.4 mmHg (35.0-45.0); ABG PARTIAL PRESSURE O2 59.7 mmHg (75.0-100.0); ABG STANDARD HCO3 36.7 MEQ/L (22.0-26.0); ABG pH (ARTERIAL) 7.536 UNITS (7.350-7.450)
[2018-12-14 12:00] VITALS: BP 138/71
[2018-12-14 16:00] VITALS: BP 102/68
[2018-12-14] MEDS ORDERED: IPRATROPIUM 0.5MG/ALBUTEROL 2.5MG INH SOL UD 3ML (DUONEB)(J7620) NEB PRN (16:30)
--- NOTE | 2018-12-14 17:30 | IPN ---
DATE: 12/14/2018 CARDIOLOGY PROGRESS NOTE SUBJECTIVE: Patient has continued to experience intermittent productive cough, but claims today this is more whitish, not purulent. His shortness of breath remains improved. Continues to be free of any awareness of his heart action. Has been up in the room without faintness. Sleeping well with his continuous positive airway pressure (C-PAP). OBJECTIVE: Obese, late middle-aged male sitting up in the chair without difficulty. No pallor or cyanosis. Currently off oxygen therapy. Heart rate 86 bpm and irregular, blood pressure 90 by pulse sitting, respiratory rate 18, oxygen saturation 90% on room air. Afebrile. Weight today is recorded as 4 kg less than yesterday. Input and output (I and O) balance yesterday was minus 1300 mL. Normal oral moisture. Trachea midline. Neck veins remain difficult to visualize. Currently has no sacral pitting and only plus/minus distal lower leg swelling. Increased anteroposterior chest configuration with reduced inspiratory sounds and no current inspiratory rales. Slight prolongation of expiration with end-expiratory wheeze. Apical impulse not palpable. Heart sounds remain very distant. 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 CHEST X-RAY: PA and left lateral study taken yesterday was reviewed independently and shows cardiomegaly without pulmonary vascular congestion. Question of small right pleural effusion. LABORATORY DATA: Hemoglobin today remains stable at 17. White blood cell count still elevated at 18,000, likely related to steroid therapy. Normal platelet count. Arterial blood gas was performed today on room air and showed a pH of 7.5, pCO2 of 45, pO2 of 60. Chemistry showed further reduction in potassium despite potassium supplement. Also has increased carbon dioxide level. Magnesium level was normal at 2.3. BUN has slightly increased at 35, creatinine 1.15, fasting glucose this morning 196. IMPRESSION/PLAN: 1. Paroxysmal atrial fibrillation: Underlying arrhythmia persists, but rate response has improved with digoxin, Bystolic, and diltiazem. Amiodarone discontinued because of suspected hyperthyroidism and he has been started on antithyroid therapy, which may already be having some beneficial effect. Continues on oral anticoagulant Xarelto without hemorrhagic problems. 2. Hyperthyroidism, suspected to be primary Graves disease. Unfortunately, his thyroid uptake scan was not performed yesterday. His quantitative thyroglobulin is pending. In light of his heart failure and rapid ventricular response, despite multiple for negative chronotropic therapies, we started him on Tapazole yesterday. This appears to be having a beneficial effect. 3. Hypertensive heart disease (benign with heart failure)/heart failure (diastolic/acute on chronic): Decompensation likely precipitated by his acute respiratory infection, superimposed atrial fibrillation with rapid ventricular response, likely triggered by thyroidism, as mentioned above. In light of his soft blood pressure, worsening prerenal azotemia and ongoing hypokalemia with metabolic alkalosis, his torsemide has been discontinued. I have given additional doses of potassium chloride (KCl) today hoping to avoid digoxin toxicity. His valsartan therapy now has a hold parameter for blood pressure less than 140. Has followup blood chemistry scheduled for the morning. Chest x-ray currently does not show pulmonary venous congestion. 4. Morbid obesity/obstructive sleep apnea/chronic cor pulmonale: In light of his ongoing wheezing and productive cough with his controlled heart rate, I have reordered regular DuoNeb therapies every 6 hours in addition to his Spiriva, Symbicort and oral prednisone. Continues to sleep with C-PAP. We will continue to follow him closely with you while he is in [place]. Thank you.
[2018-12-14 20:00] VITALS: BP 100/78
[2018-12-14] MEDS: IPRATROPIUM 0.5MG/ALBUTEROL 2.5MG INH SOL UD 3ML (DUONEB)(J7620) NEB SCH (20:00)
[2018-12-14] MEDS: VALSARTAN 80 MG TAB (DIOVAN) PO SCH (21:00)
[2018-12-14] MEDS: ATORVASTATIN 20 MG TAB PO SCH (21:36)
[2018-12-14 23:59] VITALS: BP 130/80
[2018-12-15] MEDS: IPRATROPIUM 0.5MG/ALBUTEROL 2.5MG INH SOL UD 3ML (DUONEB)(J7620) NEB SCH ×4 (01:22→20:00)
[2018-12-15 04:00] VITALS: BP 134/86
[2018-12-15 04:56] LABS: BASO # 0.1 10^3/uL (0.0-0.2); BASO % 0.6 % (0.0-1.0); EOS # 0.2 10^3/uL (0.0-0.50); EOS % 0.9 % (0.0-3.0); HEMOGLOBIN 17.6 g/dl (13.5-17.5); LYMPH # 2.3 10^3/uL (1.5-4.5); LYMPH % 12.9 % (24.0-44.0); MEAN CORPUSCULAR HEMOGLOBIN 30.4 pg (27.0-33.0); MEAN CORPUSCULAR HGB CONC 33.2 g/dl (32.0-36.5); MEAN CORPUSCULAR VOLUME 91.5 fl (80.0-96.0); MONO # 1.9 10^3/uL (0.0-0.8); NEUTROPHILS # 12.6 10^3/uL (1.8-7.7); NEUTROPHILS % 71.5 % (36.0-66.0); PLATELET COUNT, AUTOMATED 212 10^3/uL (150-450); RED BLOOD COUNT 5.79 10^6/uL (4.30-6.10); WHITE BLOOD COUNT 17.7 10^3/uL (4.0-10.0)
[2018-12-15 05:14] LABS: BLOOD UREA NITROGEN 34 MG/DL (7-18); CALCIUM LEVEL 8.6 MG/DL (8.8-10.2); CARBON DIOXIDE LEVEL 37 MEQ/L (21-32); CHLORIDE LEVEL 100 MEQ/L (98-107); CREATININE FOR GFR 0.98 MG/DL (0.70-1.30); GLOMERULAR FILTRATION RATE > 60.0 (>49); GLUCOSE, FASTING 103 MG/DL (70-100); POTASSIUM SERUM 3.8 MEQ/L (3.5-5.1); SODIUM LEVEL 140 MEQ/L (136-145)
[2018-12-15] MEDS: SLF 3 ML SYR IV SCH ×3 (05:57→21:08)
[2018-12-15 07:34] VITALS: BP 146/84
[2018-12-15] MEDS: HumaLOG INSULIN (NovoLOG) PER UNIT SC SCH ×4 (07:37→21:04)
[2018-12-15] MEDS: RIVAROXABAN 20 MG TAB (XARELTO) PO SCH (07:37)
[2018-12-15] MEDS: TIOTROPIUM INHALER/CAPSULE (SPIRIVA) INH SCH (07:43)
[2018-12-15] MEDS: SYMBICORT 160/4.5MCG INHALER 6GM INH SCH ×2 (07:43→20:39)
[2018-12-15] MEDS: DIGOXIN 0.125 MG TAB PO SCH (08:47)
[2018-12-15] MEDS: CALCIUM CARBONATE 500 MG CHEW U/D PO SCH (08:47)
[2018-12-15] MEDS: NEBIVOLOL 5 MG TAB (BYSTOLIC) PO SCH ×2 (08:47→21:07)
[2018-12-15] MEDS: MAGNESIUM OXIDE 400 MG TAB (MAG-OX) PO SCH ×2 (08:48→21:07)
[2018-12-15] MEDS: SPIRONOLACTONE 25 MG TAB PO SCH (08:48)
[2018-12-15] MEDS: POTASSIUM CHLORIDE 10 MEQ SR TABLET PO SCH (08:48)
[2018-12-15] MEDS: predniSONE 20 MG TAB PO SCH (08:48)
[2018-12-15] MEDS: SITagliptin 50 MG TAB (JANUVIA) PO SCH (08:48)
[2018-12-15] MEDS: PANTOPRAZOLE 40MG TAB (PROTONIX) PO SCH (08:48)
[2018-12-15] MEDS: LEVEMIR (INSULIN DETEMIR) 1 UNITS/0.01ML SC SCH ×2 (08:49→21:05)
--- NOTE | 2018-12-15 11:14 | ECGEPIP ---
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
[2018-12-15 11:47] VITALS: BP 102/72
--- NOTE | 2018-12-15 13:15 | IPNPDOC ---
Date Seen The patient was seen on 12/15/18. Progress Note Subjective 63 Y male, with history of COPD not on home O2, chronic afib, CHF, admitted for COPD exacerbation and pneumonia doing much better, was using CPAP at night no events overnight Objective Physical Examination General Exam: Positive: Alert, Cooperative, No Acute Distress Eye Exam: Positive: PERRLA, Conjunctiva & lids normal, EOMI; Negative: Sclera icteric ENT Exam: Positive: Atraumatic, Mucous membr. moist/pink, Pharynx Normal Neck Exam: Positive: Supple, JVD Chest Exam: Positive: Clear to auscultation, Diminished breath sound, no whe ezing no rales Heart Exam: Positive: Irregular Rhythm, Normal S1, Normal S2; Negative: Regular Rhythm, Gallops, Murmurs, Rubs, Other Telemetry: Positive: Atrial fibrillation Abdomen Exam: Positive: Normal bowel sounds, Soft Extremity Exam: Positive: no edema Negative: Clubbing, Cyanosis Skin Exam: Positive: Nl turgor and temperature; Negative: Breakdown, Lesion Neuro Exam: non focal Psych Exam: no acute psychosis Review of systems no fever no chills no chest pain no abdominal pain no diarrhea +cough Assessment /Plan Assessment 63 aliya old male with PMH of Diastolic CHF, copd with chronic respiratory failure with hypoxia, Morbid obesity , ROBBIN on CPAP, diabetes, hypertension, hyperlipid emia, Paroxysmal atrial fibrillation, hypomagnesemia, GERD, h/o colon cancer s/p partial colectomy in 2012 presented initially to the [facility] ED on 12/08/18 at the insistence of his friend for Shortness of breath worse for 1 day orthopniec over night normally he uses 2 pillow but could not lay down last night. Chika had associated cough with greenish sputum production over the past 4 days. He has been feeling generally unwell with malaise and subjective chills for the ast 5 days. He also had a n associated sore throat. He thought he had a cold. He was also started on spironolactone 1 week and though that was making him sick but ever after stopping the medication he did not feel any better. In the ED of the other hospital CXR showed RLL infiltrates and pulmonary vascular congestion. He was diagnosed with Pneumonia and CHF. He was given 80 mg of Lasix with 3000 ml Urine output which really improved his breathing. His blood pressure was uncontrolled so he was also started on nitro gtt. He was also give ceftriaxone and azithromycin. He was transferred here for further care. 1. actue respiratory failure due to COPD and Pneumonia, resolved and is off the Oxygen supplement 2. Paroxysmal A fib, rate control, on anticoagulation Xarelto 3. COPD exacerbation and Pneumonia, he is afebrile, leukocytosis resolving, he finished abx; will tapering down prednisone and nebs 4. Abnormal thyroid function tests, not sure if he has hyperthyroidism or not and he will follow with PCP and recheck TSH 5. acute on chronic diastolic CHF exacerbation, Echo showed normal EF, compensated now and will continue oral lasix 6. Hypokalemia, corrected 7. Morbid Obesity and ROBBIN on CPAP 8. DM T2, on levemir and lispro and januvia. 9. DVT prophylaxis. on xarelto 10. Plans to discharge home tomorrow A-FIB/CHADSVASC A-FIB History Current/History of A-Fib/PAF?: Yes Current Oral Anticoagulant The: Yes VS, I&O, 24H, Fishbone Vital Signs/I&O Vital Signs Date Time Temp Pulse Resp B/P (MAP) Pulse Ox O2 Delivery O2 Flow Rate FiO2 12/15/18 12:06 118 102/72 12/15/18 11:47 96.9 18 94 12/15/18 08:00 1.0 I&O- Last 24 Hours up to 6 AM 12/15/18 06:00 Intake Total 1320 ml Output Total 1250 ml Balance 70 ml Laboratory Data 24H LABS Laboratory Tests 2 12/14/18 16:34: Bedside Glucose (Misc Panel) 191H 12/14/18 20:04: Bedside Glucose (Misc Panel) 258H 12/15/18 04:36: Immature Granulocyte % (Auto) 3.1H, White Blood Count 17.7H, Red Blood Count 5.79, Hemoglobin 17.6H, Hematocrit 53.0H, Mean Corpuscular Volume 91.5, Mean Corpuscular Hemoglobin 30.4, Mean Corpuscular Hemoglobin Concent 33.2, Red Cell Distribution Width 14.3, Platelet Count 212, Neutrophils (%) (Auto) 71.5H, Lymphocytes (%) (Auto) 12.9L, Monocytes (%) (Auto) 11.0H, Eosinophils (%) (Auto) 0.9, Basophils (%) (Auto) 0.6, Neutrophils # (Auto) 12.6H, Lymphocytes # (Auto) 2.3, Monocytes # (Auto) 1.9H, Eosinophils # (Auto) 0.2, Basophils # (Auto) 0.1, Nucleated Red Blood Cells % (auto) 0.0, Anion Gap 3L, Glomerular Filtration Rate > 60.0, Blood Urea Nitrogen 34H, Creatinine 0.98, Sodium Level 140, Potassium Level 3.8#, Chloride Level 100, Carbon Dioxide Level 37H, Calcium Level 8.6L 12/15/18 11:31: Bedside Glucose (Misc Panel) 192H CBC/BMP Laboratory Tests 12/15/18 04:36 Red Blood Count 5.79, Mean Corpuscular Volume 91.5, Mean Corpuscular Hemoglobin 30.4, Mean Corpuscular Hemoglobin Concent 33.2, Red Cell Distribution Width 14.3, Neutrophils (%) (Auto) 71.5 H, Lymphocytes (%) (Auto) 12.9 L, Monocytes (%) (Auto) 11.0 H, Eosinophils (%) (Auto) 0.9, Basophils (%) (Auto) 0.6, Neutrophils # (Auto) 12.6 H, Lymphocytes # (Auto) 2.3, Monocytes # (Auto) 1.9 H, Eosinophils # (Auto) 0.2, Basophils # (Auto) 0.1, Calcium Level 8.6 L Microbiology Microbiology 12/08/18 Respiratory Virus Panel (PCR) ([facility]) - Final, Complete Parainfluenza 3 (Piv3) LEYLA CHAO MD December 15, 2018 13:15
[2018-12-15 15:52] VITALS: BP 98/72
[2018-12-15] MEDS ORDERED: TORSEMIDE 20 MG TAB PO SCH (17:00)
--- NOTE | 2018-12-15 17:25 | IPN ---
DATE: 12/15/2018 CARDIOLOGY PROGRESS NOTE: SUBJECTIVE: The patient has been up in the room and in the [place] short distances, ultimately limited by shortness of breath but feels considerably better than on his admission. With his adjusted nebulizer therapy, his cough is still not productive but it feels considerably less tight. Has remained free of any chest discomfort or any awareness of his heart action. Denies lightheadedness on his combination medical therapy. OBJECTIVE: Obese, late middle-aged male currently sitting on the edge of the bed. No pallor or cyanosis. Currently off oxygen. Heart rate 80 beats per minute and irregular, blood pressure 112/70 sitting, respiratory rate 18, oxygen saturation 91% on room air. Afebrile. His weight today is slightly up from yesterday, yet his intake and output balance was minus 1 liter yesterday?? Normal oral moisture. Trachea midline. Neck veins remain elevated just above the level of his clavicle sitting. Increased anteroposterior chest diameter with reduced chest excursion, still has a variable inspiratory rales and expiratory wheezes. Only plus/minus distal lower leg swelling. 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 Undoubtedly, this is partially related to his antithyroid medication that we started several days ago. EKG: Tracing taken this morning shows again underlying atrial fibrillation with a slightly rapid rate of 108 beats per minute, but considerably better each day. Has an incomplete left bundle branch block pattern with inferior Q waves suggestive of a prior inferior infarction. Repolarization abnormalities are not significantly changed. LABORATORY DATA: Blood work today showed stable hemoglobin with white blood cell count still 17.7 thousand, suspected to be due to his steroid therapy. Platelet count remains normal. Electrolytes today show a potassium of 3.8 and his metabolic alkalosis has improved. BUN remains stable at 34, creatinine 0.98, fasting glucose 103. IMPRESSION/PLAN: 1. Paroxysmal atrial fibrillation: Arrhythmia persists but ventricular response is improving with the combination negative chronotropic therapies and Tapazole. I am hoping to convert his short-acting diltiazem to a longer acting agent twice a day along with his Bystolic twice a day and we will stop his digoxin. We will continue on his same Xarelto therapy. 2. Hyperthyroidism, suspected primary Graves disease: Despite out request for a prompt thyroid uptake scan, this was not performed and as a result can not be done as he is on Tapazole. This is somewhat frustrating because his rapid ventricular response was contributing to his heart failure and needed to be controlled. I would still continue his Tapazole therapy 5 mg three times a day. 3. Hypertensive heart disease (benign with heart failure)/heart failure (diastolic/acute on chronic): Appears to be compensated at this point, but still has abnormal pulmonary adventitious sounds related to his pulmonary disease. His hypokalemia has been corrected and metabolic alkalosis has improved. I plan to stop his valsartan as this is being withheld with his current blood pressure on Bystolic and diltiazem. We would recommend resuming his torsemide 20 mg twice a day at the time of his discharge. He should continue on his spironolactone and potassium supplement and will need close monitoring of his chemistry at the time of discharge. 4. Morbid obesity/obstructive sleep apnea/chronic cor pulmonale: Remains on complicated combination bronchodilator therapy and DuoNebs with prednisone. Feels his breathing has improved but still has significant abnormal pulmonary adventitious sounds. Sleeps well with his continuous positive airway pressure (CPAP). I understand there is a tentative plan for him to be discharged home tomorrow. From our standpoint, this would not be unreasonable. At the time of discharge, he should make arrangements for close followup with Dr. 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 NORMA
[2018-12-15 20:00] VITALS: BP 132/88
[2018-12-15] MEDS: ATORVASTATIN 20 MG TAB PO SCH (21:06)
[2018-12-16] VITALS: BP 138/82
[2018-12-16] MEDS: IPRATROPIUM 0.5MG/ALBUTEROL 2.5MG INH SOL UD 3ML (DUONEB)(J7620) NEB SCH ×3 (01:31→12:00)
[2018-12-16 04:00] VITALS: BP 144/97
[2018-12-16] MEDS: SLF 3 ML SYR IV SCH ×2 (06:10→14:00)
[2018-12-16] MEDS: RIVAROXABAN 20 MG TAB (XARELTO) PO SCH (07:45)
[2018-12-16] MEDS: HumaLOG INSULIN (NovoLOG) PER UNIT SC SCH ×2 (07:45→13:10)
[2018-12-16] MEDS: SYMBICORT 160/4.5MCG INHALER 6GM INH SCH (07:53)
--- NOTE | 2018-12-16 07:53 | ECGEPIP ---
Stationary ECG Study [facility] Test Date: 2018-12-16 Pat Name: MELVIN OLIVEROS Department: Room: [place] [address] Gender: M Technical Aid: JOLANTA : 1955 Requested By: Wojciech Mcgregor Order Number: [id number] Reading MD: Naye Tao Measurements Intervals [place] Rate: 112 P: OK: 0 QRS: 54 QRSD: 117 T: -33 QT: 327 QTc: 447 Interpretive Statements ATRIAL FIBRILLATION WITH RAPID VENTRICULAR RESPONSE MODERATE INTRAVENTRICULAR CONDUCTION DELAY ST & T-WAVE ABNORMALITY similar to 12/15/18 Electronically Signed On 12-16-2018 7:53:34 EDT by Naye Tao
[2018-12-16] MEDS: TIOTROPIUM INHALER/CAPSULE (SPIRIVA) INH SCH (07:54)
[2018-12-16 08:00] VITALS: BP 154/98
[2018-12-16] MEDS: LEVEMIR (INSULIN DETEMIR) 1 UNITS/0.01ML SC SCH (08:51)
[2018-12-16] MEDS: SITagliptin 50 MG TAB (JANUVIA) PO SCH (08:51)
[2018-12-16] MEDS: CALCIUM CARBONATE 500 MG CHEW U/D PO SCH (08:51)
[2018-12-16 08:52] VITALS: BP 138/78
[2018-12-16] MEDS: NEBIVOLOL 5 MG TAB (BYSTOLIC) PO SCH (08:52)
[2018-12-16] MEDS: POTASSIUM CHLORIDE 10 MEQ SR TABLET PO SCH (08:52)
[2018-12-16] MEDS: predniSONE 20 MG TAB PO SCH (08:52)
[2018-12-16] MEDS: SPIRONOLACTONE 25 MG TAB PO SCH (08:53)
[2018-12-16] MEDS: PANTOPRAZOLE 40MG TAB (PROTONIX) PO SCH (08:53)
[2018-12-16] MEDS: MAGNESIUM OXIDE 400 MG TAB (MAG-OX) PO SCH (08:53)
[2018-12-16] MEDS ORDERED: DIGOXIN 0.25 MG TAB PO ONE (11:15)
[2018-12-16 12:00] VITALS: BP 138/88
[2018-12-16 12:52] LABS: ALBUMIN 2.9 GM/DL (3.2-5.2); BLOOD UREA NITROGEN 22 MG/DL (7-18); CALCIUM LEVEL 8.9 MG/DL (8.8-10.2); CARBON DIOXIDE LEVEL 32 MEQ/L (21-32); CHLORIDE LEVEL 99 MEQ/L (98-107); CREATININE FOR GFR 0.86 MG/DL (0.70-1.30); GLOMERULAR FILTRATION RATE > 60.0 (>49); GLUCOSE, FASTING 174 MG/DL (70-100); PHOSPHORUS LEVEL 3.2 MG/DL (2.5-4.9); POTASSIUM SERUM 4.6 MEQ/L (3.5-5.1); SODIUM LEVEL 137 MEQ/L (136-145)
[2018-12-16 14:10] LABS: THRYOGLOBULIN ANTIBODIES (ATA) < 1.0 IU/mL (0.0-0.9); THYROGLOBULIN QUANTITATIVE 2.6 ng/mL (1.4-29.2)
[2018-12-16 16:00] VITALS: BP 152/82
[2018-12-16] MEDS ORDERED: BYST5TAB2 PO (17:33)
[2018-12-16] MEDS ORDERED: KLOR10TA76 PO (17:33)
[2018-12-16] MEDS ORDERED: TORS20TA2 PO (17:33)
[2018-12-16] MEDS ORDERED: METH25TAB PO (17:33)
[2018-12-16] MEDS ORDERED: CARD120C3 PO ×2 (17:33→17:39)
[2018-12-16] MEDS ORDERED: DIGO0.25 PO (17:38)
--- NOTE | 2018-12-16 17:42 | IPN ---
DATE: 12/16/2018 CARDIOLOGY PROGRESS NOTE: SUBJECTIVE: The patient has been up in his room without problems. No further shortness of breath but he does continue to have a dry cough. Remains free of any chest discomfort, palpitations or lightheadedness on his current combination medical therapy. OBJECTIVE: Obese, late middle-aged male currently sitting in the chair and standing without problems. No pallor or cyanosis. Current heart rate 100 beats per minute and irregular, blood pressure was 138/80, respiratory rate 19, oxygen saturation 94% on room air. He is afebrile. Weight today was unchanged from yesterday at 274.7 pounds. Intake and output balance yesterday was recorded as -925 mL. Normal oral moisture. Trachea midline. Neck veins at the level of the clavicles with him sitting increased anteroposterior chest diameter with reduced chest expansion but fair air entry over both lung mace. Considerable improvement in inspiratory rales from yesterday. Continues to have prolonged expiration but no audible wheeze at this time. 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 LABORATORY DATA: Blood work this morning showed a hemoglobin of 17.6, white blood cell count of 17.7, and a normal platelet count. His chemistry was in balance with potassium now up to 4.6 and his bicarbonate down to 32, BUN has improved to 22 from 34 yesterday, and creatinine is now down to 0.86 from 0.98 yesterday. Fasting glucose was 174 this morning. Serum albumin was only 2.9. EKG: Taken earlier this morning showed underlying atrial fibrillation with a slightly rapid ventricular response averaging 110 beats per minute. Repolarization abnormalities remain stable. IMPRESSION/PLAN: 1. Persistent atrial fibrillation: Again believed to be related to his underlying hypertensive heart disease and triggered by his acute respiratory tract infection and hyperthyroidism. He requires three separate agents to adequately control his regimen: Digoxin 0.25 mg daily, diltiazem CD 240 mg by mouth twice a day, and Bystolic 20 mg twice a day. I have requested he take his sitting, resting heart rate and blood pressure prior to each dosage of these medications for the time being and withhold his diltiazem and Bystolic should his heart rate be lower than 70 beats per minute or blood pressure be lower than 110. He will continue on Eliquis 5 mg twice a day as before. 2. Hyperthyroidism (suspected Graves' disease): Frustratingly as mentioned, despite the request for urgent thyroid uptake scan, this was not performed. Tapazole was introduced because of his rapid ventricular response, atrial fibrillation despite four separate negative chronotropic agents. For the time being, he will continue on Tapazole 15 mg daily and followup will be left with his primary care provider. 3. Hypertensive heart disease (benign with heart failure)/heart failure (diastolic/acute on chronic): This appears to have done well with his modest salt and fluid intake restriction and diuretic therapy. His blood pressure is well-controlled on Bystolic and diltiazem with torsemide and spironolactone. He will not be continued on valsartan or lisinopril. Instead of furosemide, he will now be taking torsemide 20 mg twice a day along with his spirolactone 25 mg daily and KCl 40 mEq daily. Hold parameter for his diltiazem and Bystolic as mentioned above. 4. Morbid obesity/obstructive sleep apnea/chronic cor pulmonale: As mentioned, decompensation was triggered by his acute respiratory tract infection. Had received a course of IV Rocephin and Zithromax while he was in the hospital. Continues to have a nonproductive cough and his chest sounds dramatically improved from even yesterday. Continues to sleep well with his continuous positive airway pressure (CPAP) therapy. At this point, I concur with his discharge home. I reviewed cardiac medications with Dr. Edgar. Arrangements have been made for a followup appointment with Dr. Pandya, his customary salesperson recreational vehicles, 12/25/2018. Should he have problems in the interim, I have provided him with my personal cell phone number. NORMA
--- NOTE | 2018-12-16 18:47 | DS.PDOC ---
Discharge Summary General Date of Admission December 08, 2018 at 16:20 Date of Discharge December 16, 2018 Attending Physician: LEYLA CHAO MD Specialist/Consultants Involve: Wojciech Mcgregor Discharge Summary PROCEDURES PERFORMED DURING STAY: none ADMITTING DIAGNOSES: 1. acute respiratory failure 2. COPD exacerbation 3. Pneumonia 4. Afib with RVR 5. Hyperthyroidism DISCHARGE DIAGNOSES: 1. acute respiratory failure, resolved 2. afib with RVR, rate control 3. acute on chronic diastolic CHF 4. COPD exacerbation and Pneumonia 5. Hyperthyroidism COMPLICATIONS/CHIEF COMPLAINT: Pneumonia,Copd,Chf. HISTORY OF PRESENT ILLNESS: 63 aliya old male with PMH of Diastolic CHF, copd with chronic respiratory failure with hypoxia, Morbid obesity , ROBBIN on CPAP, diabetes, hypertension, hyperlipidemia, Paroxysmal atrial fibrillation, hypomagnesemia, GERD, h/o colon cancer s/p partial colectomy in 2012 presented initially to the [facility] ED on 12/08/18 at the insistence of his friend for Shortness of breath worse for 1 day orthopniec over night normally he uses 2 pillow but could not lay down last night. Silvioso had associated cough with greenish sputum production over the past 4 days. He has been feeling generally unwell with malaise and subjective chills for the ast 5 days. He also had a n associated sore throat. He thought he had a cold. He was also started on spironolactone 1 week and though that was making him sick but ever after stopping the medication he did not feel any better. In the ED of the other hospital CXR showed RLL infiltrates and pulmonary vascular congestion. He was diagnosed with Pneumonia and CHF. He was given 80 mg of Lasix with 3000 ml Urine output which really improved his breathing. His blood pressure was uncontrolled so he was also started on nitro gtt. He was also give ceftriaxone and azithromycin. He was transferred here for further care. HOSPITAL COURSE: after admission, he was treated with ceftriaxone,zithromycin for pneumonia, IV steroid and nebs for COPD exacerbation, IV lasix for CHF exacerbation. he was consulted with route manager regarding chf and afib. his echo showed normal EF. his medicines were adjusted to control his heart rate. he was also found to have hyperthyroidism based on increased FT4 and decreased TSH. Tapazole was started by Senior Software Engineering Manager. finally he is afebrile, not hypoxic, his HR was controlled r easonable and will go home today and follow with his route manager. DISCHARGE MEDICATIONS: Please see below. ALLERGIES: Please see below. PHYSICAL EXAMINATION ON DISCHARGE: VITAL SIGNS: Please see below. GENERAL: AA Ox3 HEENT: atraumatic NECK: no JVD CARDIOVASCULAR EXAMINATION: S1S2 irregular, no murmur RESPIRATORY EXAMINATION:diminished breath sound, no wheezing ABDOMINAL EXAMINATION: soft, BS positive, non tender EXTREMITIES: no edema SKIN: no rash NEUROLOGICAL EXAMINATION: non focal PSYCHIATRIC EXAMINATION: no acute psychosis LABORATORY DATA: Please see below. IMAGING: echo PROGNOSIS: fair ACTIVITY: [As tolerated]. DIET: cardiac diet DISPOSITION: Home, Self-Care. ITEMS TO FOLLOWUP ON ON OUTPATIENT: 1. route manager on 12/26/18 DISCHARGE CONDITION: [Stable]. TIME SPENT ON DISCHARGE: Greater than 50 minutes. Vital Signs/I&Os Vital Signs Date Time Temp Pulse Resp B/P (MAP) Pulse Ox O2 Delivery O2 Flow Rate FiO2 12/16/18 16:00 97.6 100 19 152/82 (105) 93 12/16/18 00:00 1.0 I&O- Last 24 Hours up to 6 AM 12/16/18 05:59 Intake Total 780 ml Output Total 1655 ml Balance -875 ml Laboratory Data Labs 24H Laboratory Tests 2 12/15/18 19:40: Bedside Glucose (Misc Panel) 313H 12/16/18 06:09: Bedside Glucose (Misc Panel) 136H 12/16/18 11:14: Blood Urea Nitrogen 22H, Creatinine 0.86, Sodium Level 137, Potassium Level 4.6#, Chloride Level 99, Carbon Dioxide Level 32, Anion Gap 6L, Glomerular Filtration Rate > 60.0, Calcium Level 8.9, Phosphorus Level 3.2, Albumin 2.9L 12/16/18 11:32: Bedside Glucose (Misc Panel) 174H CBC/BMP Laboratory Tests 12/16/18 11:14 Anion Gap 6 L FSBS Laboratory Tests Test 12/15/18 19:40 12/16/18 06:09 12/16/18 11:32 Range/Units Bedside Glucose (Misc Panel) 313 136 174 80-115 MG/DL Microbiology Microbiology 12/08/18 Respiratory Virus Panel (PCR) (DAVIDE) - Final, Complete Parainfluenza 3 (Piv3) Discharge Medications Scheduled Alogliptin Benzoate (Nesina) 25 Mg Tablet, 25 MG PO DAILY, (Reported) Atorvastatin Calcium (Atorvastatin Calcium) 80 Mg Tablet, 80 MG PO DAILY, (Reported) Budesonide/Formoterol (Symbicort 160-4.5 Mcg Inhaler) 6 Gm Hfa.aer.ad, 2 PUFF INH BID, (Reported) Calcium Carbonate (Calcium) 500 Mg Tab.chew, 500 MG PO DAILY, (Reported) Digoxin (Digoxin) 250 Mcg Tablet, 250 MCG PO DAILY Diltiazem Hcl (Cardizem Cd) 120 Mg Cap.er.24h, 240 MG PO BID Ergocalciferol (Vitamin D2) (Drisdol) 50,000 Unit Capsule, 50,000 UNIT PO Q2WK, (Reported) SATURDAYS Glipizide (Glipizide) 5 Mg Tablet, 5 MG PO BID, (Reported) Magnesium Oxide (Magnesium Oxide) 250 Mg Tablet, 250 MG PO DAILY, (Reported) Metformin HCl (Metformin HCl ER) 500 Mg Tab.er.24h, 1,000 MG PO DAILY, (Reported) Methimazole (Methimazole) 5 Mg Tablet, 15 MG PO DAILY Multivitamin (Multivitamins) 1 Each Capsule, 1 CAP PO BID, (Reported) Nebivolol HCl (Bystolic) 5 Mg Tablet, 20 MG PO BID [place]-3 Fatty Acids/Fish Oil (Fish Oil 1,000 mg Capsule) 1 Each Capsule, 1,000 MG PO DAILY, (Reported) Pantoprazole Sodium (Pantoprazole Sodium) 40 Mg Tablet.dr, 40 MG PO DAILY, (Reported) Potassium Chloride (Potassium Chloride) 10 Meq Tab.er.prt, 20 MEQ PO DAILY, (Reported) Potassium Chloride (Klor-Con M10) 10 Meq Tab.er.prt, 40 MEQ PO DAILY Rivaroxaban (Xarelto) 20 Mg Tablet, 20 MG PO DAILY, (Reported) Spironolactone (Spironolactone) 25 Mg Tablet, 25 MG PO DAILY, (Reported) Tiotropium [place] Monohydrate (Spiriva) 18 Mcg Cap.w.dev, 1 CAP INH DAILY, (Reported) Torsemide (Torsemide) 20 Mg Tablet, 20 MG PO BID Zinc (Zinc) 50 Mg Tablet, 50 MG PO DAILY, (Reported) Scheduled PRN Albuterol Sulfate (Ventolin Hfa) 18 Gm Hfa.aer.ad, 2 PUFF INH Q4H PRN for SHORTNESS OF BREATH, (Reported) Allergies Coded Allergies: POLLEN (Unverified Allergy, Unknown, RUNNY NOSE, 12/08/18) levofloxacin (Unverified Allergy, Unknown, UNKNOWN, 12/08/18) LEYLA CHAO MD December 16, 2018 18:47
== END 2018-12-16 18:28 | disposition home or self-care (01) | DRG 291 ==
LOC: M ICU 16:20 → M PCU 12-12 10:59
PROVIDERS: ADMIT Internal Medicine; ATTEND Hospitalist
DX: I11.0 Hypertensive heart disease with heart failure (principal); J12.9 Viral pneumonia, unspecified; J96.00 Acute respiratory failure, unspecified whether with hypoxia or hypercapnia; J96.11 Chronic respiratory failure with hypoxia; J44.1 Chronic obstructive pulmonary disease with (acute) exacerbation; J44.0 Chronic obstructive pulmonary disease with (acute) lower respiratory infection; E87.2 Acidosis; Z68.41 Body mass index [BMI] 40.0-44.9, adult; I50.33 Acute on chronic diastolic (congestive) heart failure; E66.01 Morbid (severe) obesity due to excess calories; E11.9 Type 2 diabetes mellitus without complications; B97.89 Other viral agents as the cause of diseases classified elsewhere; I48.0 Paroxysmal atrial fibrillation; G47.33 Obstructive sleep apnea (adult) (pediatric); E78.5 Hyperlipidemia, unspecified; E83.42 Hypomagnesemia; K21.9 Gastro-esophageal reflux disease without esophagitis; Z85.038 Personal history of other malignant neoplasm of large intestine; Z79.899 Other long term (current) drug therapy; Z88.8 Allergy status to other drugs, medicaments and biological substances; E05.90 Thyrotoxicosis, unspecified without thyrotoxic crisis or storm; I27.81 Cor pulmonale (chronic); E87.6 Hypokalemia